=== PATIENT | female | born 1930 | race Caucasian/White ===

== ENCOUNTER 2019-09-24 03:52 | Inpatient (IN) ==
[2019-09-24] MEDS ORDERED: fentaNYL citrate 100 MCG/2 ML VIAL IV STA (04:02)
[2019-09-24] MEDS ORDERED: ONDANSETRON INJ 2 MG/ML 2 ML VIAL IV STA (04:02)
[2019-09-24] MEDS ORDERED: SODIUM CHLORIDE 0.9% 1000ML 500 ML IV ONE (04:02)
[2019-09-24] MEDS ORDERED: ONDANSETRON INJ 2 MG/ML 2 ML VIAL ONE (04:03)
--- NOTE | 2019-09-24 04:08 | Emergency Department Note ---
Impression & Plan Complicated UTI (urinary tract infection), Closed head injury, Weakness on right side of face, Acute dehydration, Generalized weakness ED Provider Note Name: MARY DEAN Age: 89 Sex: F Arrives Via: Ambulance Informant: Patient, EMS ED Provider: Bruce Martinez MD Chief Complaint: Weakness Impression: Complicated UTI Closed Head injury Weakness on right side of face Acute Dehydration Generalized Weakness Medical Decision Makin yr old female with history of GERD, TIA, HTN, Hypothyroid arrives from home for evaluation worsening headache, vomiting, weakness following multiple falls over last few days. Exam she is dehydrated, uncomfortable and has mild right facial weakness without other neuro deficits. This has been ongoing for several days thus no indication for stroke alert at this time. Patient with HTN on arrival which gradually improved with symptoms control. Given Fentanyl for Headache, Zofran for nausea followed by Ativan for nausea with good success. She has UTI by straight cath. Labs not consistent with sepsis. CXR without pna. CT head/cervical negative for acute trauma. She is stable, but not in shape to be able to go home and clearly will need further work-up for her findings. She was not given ASA as I did not feel she could pass swallow survey currently. Daughter arrived and notes patient has been taking all meds but her Pepcid. Her Levothyroxine has been difficult to manage over last year given up and down TSH. Prior Medical Record and Triage/Nursing Notes reviewed by Me Additional history obtained from EPIC Record and Daughter Differentials:Infection, dehydration, metabolic abnormality, hypo/hyperglycemia, electrolyte disturbance, anemia, hypoxia, cardiac sources, intracerebral event, toxicologic, neurologic, as well as other pathologies. Vital Signs: reviewed and remarkable for HTN Interventions: Saline lock, nss bolus, fentanyl 25mcg IV, Zofran 4mg IV, Ativan .25mg IV, Rocephin 1 gm IV Labs:Reviewed and remarkable for +UTI Imaging:[facility] Radiologist interpretation reviewed by me: CT head cervical no acute findings X ray results are stated below per my interpretation: Chest: 1 view: No infiltrate, no effusion, normal cardiac border. EKG:Per My Interpretation: Indication Weakness: Sinus Leonidas 59 bpm, qtc 459. No Ectopy. No Ischemia. No previous for comparison Cardiac/Tele Monitoring: Cardiac Monitoring: An Order was placed for continuous cardiac monitoring. The monitor shows a rate of 55 with a sinus leonidas rhythm. Consults:Dr Aguila العلي Hospitalist Plan: Disposition:Hospitalization. Condition: Fair Blood pressure:Elevated - Referred to Hospitalist Prescriptions:none PDMP: n/a History of Present Illness:89 / F arrives for evaluation of weakness. Patient notes 1 week of feeling week and difficulty ambulating. She uses a walker and notes she can't use it properly the last few days. This has lead to 2 falls over the last few days, both of which resulting in striking posterior head on the ground. Associated with frontal headache, fatigue and difficulty swallowing. Admits she hasn't been eating much due to nausea and swallowing issues. Worse with getting up, better with laying down/sitting. Denies cp, sob, syncope, abdominal pain, back pain, urinary/bowel symptoms, leg swelling, rashes, fevers, nor other symptoms. Denies family history of bleeding issues. Zofran 4mg IV prior to arrival by EMS. Patient admits history of "small stroke" when she lived in [place] many years ago. She notes she stopped taking most over medications over the last few months other than Tylenol and Vitamins ROS: See above HPI for pertinent positives & negatives. A total of 10 systems reviewed and were otherwise negative. Past Medical History:HTN, CVA, Hypothyroidism Past Surgical History:Gallbladder removal, carpal tunnel, eye surgery, bladder surgery, hysterectomy Family History: Mother CVA, Father CAD Social History:Lives with son, no etoh, no smoking, retired Home Medications:Levothyroxine, Pepcid, Tylenol, Vit D3, Vit B12, PEG Gycol Allergies:PNC, Sulfa Vitals:Blood Pressure: 207/99, Pulse 58, RR 14, T 36.4C, O2 95% on RA Physical Exam: GENERAL: Patient is elderly appearing and in moderate distress. Very dehydrated appearing EYES: No scleral icterus, unremarkable pupils. ENT: Mucous membranes dry, no nasal congestion. NECK: No masses appreciated, nomeningismus, trachea is midline. RESPIRATORY: No dyspnea. Clear to auscultation and equal bilaterally. No wheeze, no rhonchi. CARDIOVASCULAR: Regular rate and rhythm.No murmurs, rubs, gallops appreciated. GASTROINTESTINAL: Abdomen soft, non-tender, no peritonitis.Bowel sounds positive.No masses appreciated. BACK: No midline tenderness, no CVA tenderness EXTREMITIES: Normal motion all extremities, no cyanosis, no edema. NEUROLOGIC: Alert and oriented, no acute motor or sensory deficits, no focal weakness of extremities. Mild right facial droop and slightly slurred speech SKIN: No rash, no jaundice, no diaphoresis. PSYCH: Appropriate GCS: 15 ED Course: Times/Reassessments: Stable, gradually improving BP and symptoms Bruce Martinez MD Past Med/Surg History Social History Smoking Status: Never smoker Hx Alcohol Use: No Hx Substance Use: No Preferred Language: Armenian Beliefs That Will Affect Care: None Current Living Situation: Family Current Living Situation Comment: son lives with her Other Information That Helps Us Care for You: No Feels Safe at Home: Yes Allergies Allergies Allergy/AdvReac Type Severity Reaction Status Date / Time Sulfa (Sulfonamide Allergy Severe Hives Verified 09/24/19 06:19 Antibiotics) ciprofloxacin [From Cipro] Allergy Intermediate Hallucinati Verified 09/24/19 06:19 ng Penicillins Allergy Intermediate hallucinate Verified 09/24/19 04:47 s/n/v Home Meds Home Medications Medication Instructions Recorded Confirmed Lidocaine Gel 1 applic TOPICAL DIRECTED 09/24/19 09/24/19 acetaminophen [Tylenol Extra 500 mg PO Q6H PRN 09/24/19 09/24/19 Strength] cholecalciferol (vitamin D3) 50 mcg PO DAILY 09/24/19 09/24/19 cyanocobalamin (vitamin B-12) 500 mcg PO DAILY 09/24/19 09/24/19 famotidine 20 mg PO HS 09/24/19 09/24/19 levothyroxine 100 mcg PO DAILY 09/24/19 09/24/19 peg 400-propylene glycol (PF) 1 drp OPHTHALMIC (EYE) DAILY 09/24/19 09/24/19 [Systane (PF)] Results & Data (ED) Vital Signs Vital Signs - 24 hr 09/24/19 04:01 09/24/19 04:04 09/24/19 04:25 Temperature 36.4 C L Temperature Source Oral Pulse Rate 58 L 58 L 67 Pulse Rate from SpO2 Sensor 58 L 68 Respiratory Rate 14 16 18 Respiratory Depth Normal Blood Pressure 207/99 H 195/101 H 195/95 H Blood Pressure Mean 135 136 159 Pulse Oximetry 95 95 91 Oxygen Delivery Method Room Air Room Air Room Air Sepsis Recent Fever Within 48 Hours No Sepsis New/Unexplained Change in Mental Status N/A Sepsis Action Taken by Nursing No Action Required 09/24/19 04:31 09/24/19 05:01 09/24/19 05:30 Temperature Temperature Source Pulse Rate 60 64 57 L Pulse Rate from SpO2 Sensor 58 L 66 56 L Respiratory Rate 19 19 14 Respiratory Depth Blood Pressure 177/84 H 175/84 H 179/84 H Blood Pressure Mean 86 118 113 Pulse Oximetry 94 94 94 Oxygen Delivery Method Room Air Room Air Room Air Sepsis Recent Fever Within 48 Hours Sepsis New/Unexplained Change in Mental Status Sepsis Action Taken by Nursing 09/24/19 06:01 Temperature Temperature Source Pulse Rate 59 L Pulse Rate from SpO2 Sensor 58 L Respiratory Rate 16 Respiratory Depth Blood Pressure 165/85 H Blood Pressure Mean 104 Pulse Oximetry 94 Oxygen Delivery Method Room Air Sepsis Recent Fever Within 48 Hours Sepsis New/Unexplained Change in Mental Status Sepsis Action Taken by Nursing Laboratory Data Result diagrams: 09/24/19 04:43 09/24/19 04:43 Lab Results 09/24/19 09/24/19 09/24/19 Range/Units 04:05 04:43 04:43 WBC 9.72 (4.8-10.8) K/uL RBC 5.07 (4.2-5.4) M/uL Hgb 15.4 (12.0-16.0) g/dL Hct 44.9 (37-47) % MCV 88.6 (80-100) fL MCH 30.4 (25-34) pg MCHC 34.3 (32-36) g/dL RDW Std Deviation 45.3 (36.4-46.3) fL RDW Coeff of Nolvia 14.0 (11.5-14.5) % Plt Count 202 (130-400) K/uL MPV 10.3 (7.4-10.4) fL Immature Gran % (Auto) 0.2 % Neut % (Auto) 77.7 % Lymph % (Auto) 14.9 % Grady % (Auto) 6.5 % Eos % (Auto) 0.5 % Baso % (Auto) 0.2 % Neut # (Auto) 7.55 H (1.4-6.5) K/uL Lymph # (Auto) 1.45 (1.2-3.4) K/uL Grady # (Auto) 0.63 H (0.11-0.59) K/uL Eos # (Auto) 0.05 (0-0.5) K/uL Baso # (Auto) 0.02 (0-0.2) K/uL Immature Gran # (Auto) 0.02 (0.00-0.02) K/uL PT 11.1 (9.0-12.0) Seconds INR 1.1 (0.9-1.1) Sodium (136-145) mmol/L Potassium (3.5-5.1) mmol/L Chloride (98-107) mmol/L Carbon Dioxide (21-32) mmol/L Anion Gap (3-11) BUN (7-18) mg/dl Creatinine (0.6-1.2) mg/dl Est Cr Clr Drug Dosing ml/min Est GFR ( Amer) Est GFR (Non-Af Amer) BUN/Creatinine Ratio (10-20) Glucose (70-99) mg/dl Calcium (8.5-10.1) mg/dl Magnesium (1.8-2.4) mg/dl Troponin I (0-0.045) ng/ml TSH (0.300-4.500) uIu/ml Free T4 (0.8-1.6) ng/dl Urine Color Yellow Urine Appearance Cloudy A (Clear) Urine pH 8.0 H (4.5-7.5) Ur Specific [place] 1.013 (1.000-1.030) Urine Protein Negative (Negative) Urine Glucose (UA) Negative (Negative) Urine Ketones Trace H (Negative) Urine Blood Trace H (Negative) Urine Nitrite Positive A (Negative) Urine Bilirubin Negative (Negative) Urine Urobilinogen Negative (Negative) Ur Leukocyte Esterase Negative (Negative) Urine WBC (Auto) 1-5 (0-5) /hpf Urine RBC (Auto) 0-4 (0-4) /hpf U Hyaline Cast (Auto) 1-5 (0-5) /lpf U Epithel Cells (Auto) 5-10 H (0-5) /lpf Urine Bacteria (Auto) 4+ H (Negative) 09/24/19 09/24/19 Range/Units 04:43 04:43 WBC (4.8-10.8) K/uL RBC (4.2-5.4) M/uL Hgb (12.0-16.0) g/dL Hct (37-47) % MCV (80-100) fL MCH (25-34) pg MCHC (32-36) g/dL RDW Std Deviation (36.4-46.3) fL RDW Coeff of Nolvia (11.5-14.5) % Plt Count (130-400) K/uL MPV (7.4-10.4) fL Immature Gran % (Auto) % Neut % (Auto) % Lymph % (Auto) % Grady % (Auto) % Eos % (Auto) % Baso % (Auto) % Neut # (Auto) (1.4-6.5) K/uL Lymph # (Auto) (1.2-3.4) K/uL Grady # (Auto) (0.11-0.59) K/uL Eos # (Auto) (0-0.5) K/uL Baso # (Auto) (0-0.2) K/uL Immature Gran # (Auto) (0.00-0.02) K/uL PT (9.0-12.0) Seconds INR (0.9-1.1) Sodium 141 (136-145) mmol/L Potassium 3.7 (3.5-5.1) mmol/L Chloride 108 H (98-107) mmol/L Carbon Dioxide 28 (21-32) mmol/L Anion Gap 5.0 (3-11) BUN 8 (7-18) mg/dl Creatinine 0.76 (0.6-1.2) mg/dl Est Cr Clr Drug Dosing 38.8 ml/min Est GFR ( Amer) 80.6 Est GFR (Non-Af Amer) 69.5 BUN/Creatinine Ratio 11.2 (10-20) Glucose 137 H (70-99) mg/dl Calcium 9.0 (8.5-10.1) mg/dl Magnesium 2.0 (1.8-2.4) mg/dl Troponin I < 0.015 (0-0.045) ng/ml TSH 28.800 H (0.300-4.500) uIu/ml Free T4 1.03 (0.8-1.6) ng/dl Urine Color Urine Appearance (Clear) Urine pH (4.5-7.5) Ur Specific [place] (1.000-1.030) Urine Protein (Negative) Urine Glucose (UA) (Negative) Urine Ketones (Negative) Urine Blood (Negative) Urine Nitrite (Negative) Urine Bilirubin (Negative) Urine Urobilinogen (Negative) Ur Leukocyte Esterase (Negative) Urine WBC (Auto) (0-5) /hpf Urine RBC (Auto) (0-4) /hpf U Hyaline Cast (Auto) (0-5) /lpf U Epithel Cells (Auto) (0-5) /lpf Urine Bacteria (Auto) (Negative) Administered Medications Aspirin (Ecotrin Ectab) 81 mg PO QAM KIRK Stop: 10/24/19 10:59 Last Admin: 09/24/19 12:10 Dose: 81 mg Documented by: [id number] Calcium Carbonate (Tums) 1,000 mg PO Q6H PRN PRN Reason: Indigestion Stop: 10/24/19 11:33 Last Admin: 09/24/19 19:55 Dose: 1,000 mg Documented by: [id number] Cyanocobalamin (Vitamin B-12) 500 mcg PO DAILY [facility] Stop: 10/24/19 10:59 Last Admin: 09/24/19 12:10 Dose: 500 mcg Documented by: [id number] Famotidine (Pepcid) 20 mg PO HS KIRK Stop: 10/24/19 20:59 Last Admin: 09/24/19 20:33 Dose: 20 mg Documented by: [id number] Sodium Chloride (Nss 1000ml) 1,000 mls @ 75 mls/hr IV .[id number] KIRK Stop: 10/24/19 10:33 Last Infusion: 09/24/19 18:21 Dose: 75 mls/hr Documented by: [id number] Infusion: 09/24/19 17:15 Dose: 0 mls/hr Documented by: [id number] Admin: 09/24/19 11:15 Dose: 75 mls/hr Documented by: [id number] Ondansetron HCl (Zofran) 4 mg IV Q6H PRN PRN Reason: Nausea Stop: 10/24/19 10:33 Last Admin: 09/24/19 20:37 Dose: 4 mg Documented by: [id number] Discontinued Medications Fentanyl Citrate (Fentanyl Citrate) 25 mcg IV NOW STA Stop: 09/24/19 04:03 Last Admin: 09/24/19 04:29 Dose: 25 mcg Documented by: [id number] Sodium Chloride (Nss 1000ml) 500 mls @ 999 mls/hr IV .Q31M ONE Stop: 09/24/19 04:32 Last Infusion: 09/24/19 04:59 Dose: 0 mls/hr Documented by: [id number] Admin: 09/24/19 04:28 Dose: 999 mls/hr Documented by: [id number] Lorazepam (Ativan) 0.25 mg in 0.5 mls @ 0.5 mls/min IV NOW STA Stop: 09/24/19 04:56 Last Admin: 09/24/19 05:01 Dose: 0.5 mls/min Documented by: [id number] Ceftriaxone Sodium (Rocephin) 1,000 mg in 50 mls @ 100 mls/hr IV NOW STA Stop: 09/24/19 05:39 Last Infusion: 09/24/19 05:58 Dose: 0 mls/hr Documented by: [id number] Admin: 09/24/19 05:28 Dose: 100 mls/hr Documented by: [id number] Lorazepam (Ativan) 0.25 mg in 0.5 mls @ 0.5 mls/min IV ONE ONE Stop: 09/24/19 12:57 Last Admin: 09/24/19 16:11 Dose: 0.5 mls/min Documented by: [id number] Ondansetron HCl (Zofran) 4 mg IV NOW STA Stop: 09/24/19 04:03 Last Admin: 09/24/19 04:28 Dose: 4 mg Documented by: [id number] Discharge Plan Visit Data *Final* Discharge Date/Time: 09/24/19 08:51 Chief Complaint: Dizziness Stated Complaint: DIZZY/HEADACHE/FALL ED Provider: Bruce Martinez Discharge Problem: Complicated UTI (urinary tract infection), Closed head injury, Weakness on right side of face, Acute dehydration, Generalized weakness Patient Disposition: Admitted As Inpatient Discharge Instructions Interventions: ED Discharge Assessment Last Done: 09/24/19 08:51 Discharge Problem: Closed head injury Qualifiers: Encounter type: initial encounter Qualified Code(s): S09.90XA - Unspecified injury of head, initial encounter
[2019-09-24 04:35] LABS: Appearance Urine Cloudy (Clear); Bacteria Urine Automated 4+ (Negative); Bilirubin Urine Negative (Negative); Blood Urine Trace (Negative); Color Urine Yellow; Glucose Urine UA Negative (Negative); Ketones Urine Trace (Negative); Leukocyte Esterase Urine Negative (Negative); Nitrite Urine Positive (Negative); Protein Urine Negative (Negative); RBC Urine Automated 0-4 /hpf (0-4); Specific Gravity Urine 1.013 (1.000-1.030); Urobilinogen Urine Negative (Negative)
[2019-09-24] MEDS ORDERED: LORazepam 0.25 MG/0.5 ML VIAL IV STA (04:55)
[2019-09-24 04:56] LABS: Basophils # (auto) 0.02 K/uL (0-0.2); Basophils % (auto) 0.2 %; Eosinophils # (auto) 0.05 K/uL (0-0.5); Eosinophils % (auto) 0.5 %; Hematocrit (blood only) 44.9 % (37-47); Hemoglobin 15.4 g/dL (12.0-16.0); Immature Granulocytes # (auto) 0.02 K/uL (0.00-0.02); Immature Granulocytes % (auto) 0.2 %; Lymphocytes # (auto) 1.45 K/uL (1.2-3.4); Lymphocytes % (auto) 14.9 %; Mean Corpuscular Hemoglobin 30.4 pg (25-34); Mean Corpuscular Hgb Conc 34.3 g/dL (32-36); Mean Corpuscular Volume 88.6 fL (80-100); Mean Platelet Volume 10.3 fL (7.4-10.4); Monocytes # (auto) 0.63 K/uL (0.11-0.59); Monocytes % (auto) 6.5 %; Neutrophils # (auto) 7.55 K/uL (1.4-6.5); Neutrophils % (auto) 77.7 %; Platelet Count 202 K/uL (130-400); RDW Standard Deviation 45.3 fL (36.4-46.3); Red Blood Count 5.07 M/uL (4.2-5.4); White Blood Count 9.72 K/uL (4.8-10.8)
[2019-09-24] MEDS ORDERED: cefTRIAXone SODIUM 1,000 MG/50 ML BAG IV STA (05:10)
[2019-09-24 05:13] LABS: BUN Creatinine Ratio 11.2 (10-20); Blood Urea Nitrogen 8 mg/dl (7-18); Carbon Dioxide 28 mmol/L (21-32); Chloride 108 mmol/L (98-107); Creatinine Clr Calc Pharmacy 38.8 ml/min; Est GFR (African American) 80.6; Est GFR (Non-African American) 69.5; Glucose 137 mg/dl (70-99); INR 1.1 (0.9-1.1); Potassium 3.7 mmol/L (3.5-5.1); Prothrombin Time 11.1 Seconds (9.0-12.0); Sodium 141 mmol/L (136-145)
[2019-09-24 05:18] LABS: Troponin I < 0.015 ng/ml (0-0.045)
--- NOTE | 2019-09-24 06:25 | CT Scan Report ---
CT OF THE HEAD WITHOUT CONTRAST CLINICAL HISTORY: Generalized weakness/ right facial droop COMPARISON STUDY: No previous studies for comparison. CT DOSE: 1375.90 mGy.cm TECHNIQUE: Helical axial images of the head were obtained without IV contrast. Automated exposure con trol was utilized for the study. A dose lowering technique was utilized adhering to the principles o f ALARA. FINDINGS: No acute intracranial hemorrhage, midline shift or mass effect is present. Mild ventricular dilatation is due to atrophy. The basilar cisterns are patent. White matter hypodensities suggest ex tensive small vessel disease. No extra-axial collections are present. There are no findings to sugges t acute dural sinus thrombosis or acute territorial infarct. No significant calvarial abnormalities a re present. Visualized portions of the sinuses and mastoid air cells are clear. IMPRESSION: 1. No acute intracranial findings. 2. Atrophy and small vessel disease. 3. No calvarial fracture. ACT 112: Negative or not required by law. Electronically signed by: Wilner Phillips M.D. 09/24/2019 6:23 AM
--- NOTE | 2019-09-24 06:26 | XRay Report ---
XR chest 1V portable CLINICAL HISTORY: stroke COMPARISON STUDY: No previous studies for comparison. FINDINGS: Bibasilar opacities favor atelectasis. Patient is rotated. There is no consolidation to sug gest pneumonia. There is no evidence for pulmonary edema. There is mild cardiomegaly. No pneumothorax or pleural effusion is noted. Old healed proximal left humeral fracture is incidentally noted. IMPRESSION: 1. No acute findings. 2. Bibasilar opacities suggestive of atelectasis. ACT 112: Negative or not required by law. Electronically signed by: Wilner Phillips M.D. 09/24/2019 6:25 AM
--- NOTE | 2019-09-24 06:28 | CT Scan Report ---
CT OF THE CERVICAL SPINE WITHOUT CONTRAST CLINICAL HISTORY: fall, closed head injury COMPARISON STUDY: No previous studies for comparison. TECHNIQUE: Helical axial images of the cervical spine were obtained without IV contrast. Sagittal a nd coronal reconstructions were viewed. Automated exposure control was utilized for the study. A do se lowering technique was utilized adhering to the principles of ALARA. FINDINGS: Alignment of the cervical spine is anatomic. Vertebral body heights are maintained. No acut e cervical spine fracture or subluxation is present. There is no prevertebral edema. Facet joints are intact. Moderate multilevel facet arthrosis is noted. There is mild to moderate multilevel degenera tive disc disease. IMPRESSION: No acute cervical spine fracture or subluxation. ACT 112: Negative or not required by law. Electronically signed by: Wilner Phillips M.D. 09/24/2019 6:27 AM
--- NOTE | 2019-09-24 08:26 | History and Physical Report ---
DATE OF ADMISSION: 09/24/2019 CHIEF COMPLAINT: Dizziness and nausea. HISTORY OF PRESENT ILLNESS: This is an 89-year-old female with a past medical history significant for hypothyroidism, history of hypertension, currently not taking any medications, history of CVA versus TIA many years ago, but as per daughter, recent MRI scan 1 year ago did not show any stroke in it. The patient lives with her son. She walks with help of walker. About a week ago, she fell and also last Monday while she was walking with walker, she fell backwards. She thinks she hit her head and today she was having severe headache behind the eyes and also nauseous. She thought she might had concussion and came to the ER. When she came in, her blood pressure was high in 200s and her labs showed UTI. She was started on Rocephin. Her imaging studies were unremarkable. There is question of some mild right facial droop, and her daughter was not sure really sure if it was present prior or not. The patient otherwise alert and awake.Daughter helped with H&P but the patient is able to answer the questions. Currently, still has some headache. Her vision is not great and she always has a runny nose and occasional cough. She has a history of difficulty swallowing and as per daughter, she had extensive workup for swallowing and it was determined because of the GERD .Patient has some difficulty swallowing pills. Can swallow capsules okay. No shortness of breath, no chest pain, feels chills, no fever. Currently, nausea is better. No abdominal pain, but she has burning sensation in her throat when she eats food. Somewhat constipated, uses stool softeners. No blood in the stools. She has some mild burning micturition. No swelling in the legs, no rash. Currently resting comfortable and hemodynamically stable. ALLERGIES: SULFA ANTIBIOTICS, CIPROFLOXACIN, PENICILLINS. PAST MEDICAL HISTORY: As mentioned above. PAST SURGICAL HISTORY: Carpal tunnel surgery, EGDs, insertion of bilateral lens, cholecystectomy, repair of the bladder neck, total hysterectomy, breast needle biopsy. MEDICATIONS: Patient taking Synthroid 100 mcg p.o. daily, famotidine 20 mg at bedtime, vitamin D 50 mcg p.o. daily. FAMILY HISTORY: Significant for father has CAD, at age of 95. Mother had stroke, at age of 91. Brother has alcoholism. Sister has breast cancer . SOCIAL HISTORY: , lives with her son. No smoking, no alcohol, no drug use. REVIEW OF SYMPTOMS: As per HPI. Rest of review of systems negative. PHYSICAL EXAMINATION: GENERAL: The patient is old and frail, not in acute distress. VITAL SIGNS: Temperature 36.4, pulse 57, respiratory rate 14, blood pressure 117/84, oxygen 94% on room air. HEENT: No pallor, no icterus. Pupils equal, round, reactive to light. Mild right facial droop. NECK: No JVD, no neck masses. CARDIOVASCULAR: S1, S2 heard, regular rate and rhythm, no murmur, no gallop. RESPIRATORY SYSTEM: Normal AP diameter. No accessory muscle use. No wheezing, no crackles. ABDOMEN: Soft, bowel sounds present, nontender. No distention. CENTRAL NERVOUS SYSTEM: Alert and awake and oriented. Possible mild facial droop. Speech is okay. Power 3/5 extremities. Able to lift her lower extremity and hold it. Sensation is intact. No pronator drift. Position sense intact. EXTREMITIES: No edema, no erythema. LABORATORY DATA: WBC 9.7, hemoglobin 15.4, hematocrit 15.4, hematocrit 44.9, platelets 202. PT 11.1, INR 1.1. Sodium 141, potassium 3.7, chloride 108, bicarbonate 28, BUN 38, creatinine 0.7, serum glucose 137, calcium 9, magnesium 2. Troponin I less than 0.015. TSH 28.8. Urinalysis positive for nitrite and +[address] preliminary report unremarkable. CT of the head, no acute findings, small vessel disease. Chest x-ray, no acute findings, bibasilar lobes suggestive of atelectasis. ASSESSMENT AND PLAN: This is an 89-year-old female who lives at home with her son, ambulates with a walker, comes because of 2 falls in last 1 week, last fall was last Monday and today she had a headache and nausea. Came to Er for possible concussion, she was found to have UTI and possible stroke. 1. Possible CVA with questionable mild facial droop. We will do stroke workup . We will follow the MRI scan, echo, carotid Doppler, PT, OT, speech evaluation. Monitor in the tele. Neuro consult. 2. Urinary tract infection. Could be contributing to her falls. Started on Rocephin. We will follow the cultures. Gentle fluids. 3. History of frequent falls, ambulatory dysfunction and uses a walker. We will do PT, OT and monitor in the hospital. 4. Hypothyroidism. Daughter states her thyroid levels were fluctuating and she is currently taking 100 mcg p.o. daily. TSH level is high. We will follow with free T4 levels and we need to adjust dose. 5. Gastroesophageal reflux disease, on famotidine. The patient has history of difficulty swallowing. Per daughter, she has done swallow evaluation and thought from GERD. Takes treatment for her GERD. She has difficulty taking pills. She is okay to take capsules . 6. Hypertension. Blood pressure running high currently. As per daughter blood pressure is controlled at home without any medications. We will monitor the blood pressure. If it is consistently high, may need to be sent home on antihypertensives and close followup with PCP. 7. Deep venous thrombosis prophylaxis, sequential compression devices. DISPOSITION: Closely monitor in the tele. Level 1 full code. Expect to discharge home and follow with the family doctor. TATE
[2019-09-24] MEDS ORDERED: PHARMACIST DISCHARGE MED REC CONSULT PRN (10:34)
[2019-09-24] MEDS ORDERED: POLYETHYLENE (MIRALAX) 17 GM PACK PO PRN (10:34)
[2019-09-24] MEDS ORDERED: ACETAMINOPHEN 325 MG TAB PO PRN (10:34)
[2019-09-24] MEDS ORDERED: NITROGLYCERIN SL 0.4 MG/TAB TAB SL PRN (10:34)
[2019-09-24] MEDS ORDERED: HydrALAZINE HCL 20 MG/ML VIAL IV PRN (10:34)
[2019-09-24] MEDS: SODIUM CHLORIDE 0.9% 1000ML 1,000 ML IV SCH ×2 (11:15→23:54)
[2019-09-24 11:22] LABS: Thyroid Stimulating Hormone 28.8 uIu/ml (0.300-4.500)
[2019-09-24 11:37] LABS: T4 Free Thyroxine 1.03 ng/dl (0.8-1.6)
[2019-09-24] MEDS: CYANOCOBALAMIN 500 MCG TABLET (VITAMIN B-12) PO SCH (12:10)
[2019-09-24] MEDS: ASPIRIN 81 MG ECTAB PO SCH (12:10)
[2019-09-24] MEDS ORDERED: LORazepam 0.25 MG/0.5 ML VIAL IV ONE (12:56)
--- NOTE | 2019-09-24 16:20 | Communication Note ---
Date of Service: September 24, 2019 I have seen interviewed and examined Mrs. Small today but unfortunately had no family members to interview and the patient was quite hearing impaired. The history was reviewed and the question now is whether or not she has a new right facial asymmetry and possibly a new stroke or significant trauma related to her recent fall or falls. 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 Her CT scan shows extensive white matter changes but nothing convincing that is new and she will need an MRI scan and echocardiogram etc. all as outlined before we can make a definitive diagnosis here of a new versus old CVA According to the chart she is not on any antiplatelet drugs but does have some GERD. 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
--- NOTE | 2019-09-24 17:49 | Magnetic Resonance Report ---
MR brain wo con HISTORY: 89 years-old Female cva? Acute strokelike symptoms COMPARISON: Head CT 09/24/2019 TECHNIQUE: Multiplanar multisequence MRI of the brain was obtained without the use of IV contrast. FINDINGS: Study is mildly motion degraded. Regulatory Product Manager localizer images demonstrate no gross extracranial abnormality . There is no restricted diffusion to suggest acute or subacute infarct. Age-related involutional blanquita nges with ex vacuo ventriculomegaly. No acute intracranial hemorrhage, midline shift, abnormal extra axial collection, hydrocephalus or intracranial mass. Extensive confluent T2/FLAIR hyperintensities a re noted throughout the white matter. The major vascular flow voids appear patent. Prior bilateral le ns replacement. Mastoid air cells and paranasal sinuses are generally clear. The skull and soft tissu es are unremarkable. IMPRESSION: 1. No acute intracranial abnormality, specifically there is no evidence of acute or subacute infarct. 2. Age-related involutional changes with ex vacuo ventriculomegaly. 3. Extensive confluent T2/FLAIR hyperintensities throughout the white matter are suggestive of probab le chronic microvascular ischemic disease. ACT 112: Negative or not required by law. The above report was generated using voice recognition software. It may contain grammatical, syntax o r spelling errors. Electronically signed by: Mark Mariano M.D. 09/24/2019 5:47 PM
--- NOTE | 2019-09-24 18:01 | Ultrasound Report ---
US carotid doppler BI CLINICAL HISTORY: 89 years-old Female with cva?. Acute strokelike symptoms COMPARISON: Brain MRI of same day TECHNIQUE: Multiple real time sonographic images of the carotid bifurcations were obtained assessing chou scale, color Doppler and spectral wave form appearance FINDINGS: RIGHT CAROTID: The peak systolic velocity within the right ICA is measured at62 cm/sec. The end ad stolic velocity measured 22 cm/sec. The ICA to CCA ratio measured 0.98 which correlates with a steno sis of 0-50%. There is moderate mixed plaque of the right carotid bulb and proximal right ICA. LEFT CAROTID: The peak systolic velocity within the left ICA is measured at46 cm/sec. The end diast olic velocity measured 14 cm/sec. The ICA to CCA ratio measured 0.58 which correlates with a stenosis of 0-50%. There is moderate mixed plaque within the left carotid bulb and proximal left ICA. There is normal antegrade vertebral flow bilaterally. IMPRESSION: 1. No hemodynamically significant stenosis. 2. Normal antegrade vertebral flow bilaterally. ACT 112: Negative or not required by law. The above report was generated using voice recognition software. It may contain grammatical, syntax o r spelling errors. Electronically signed by: Mark Mariano M.D. 09/24/2019 6:00 PM
--- NOTE | 2019-09-24 18:27 | Communication Note ---
Date of Service: September 24, 2019 The patient was seen and examined today in medical telemetry unit in presence of the daughter She complains to have extreme weakness and tiredness but denies any focal neuro deficit She was noted to be very dizzy when she was up and about with assistance Denies any acute symptoms On examination Hemodynamically stable Chest-decreased breath sounds at the bases with minimal crackles Heart-S1-S2 regular Abdomen-benign Extremities-no edema MANAGER PHP-generally weak, no focal neuro deficit Admission labs and imaging studies reviewed Has UTI Doubt any stroke Postural hypotension-check orthostasis advised more fluid intake Awaiting MRI, carotid Doppler and echo report Neurology consulted Dr Toni Amador
[2019-09-24] MEDS: ONDANSETRON INJ 2 MG/ML 2 ML VIAL IV PRN ×2 (18:29→20:37)
[2019-09-24] MEDS ORDERED: LIDOCAINE 2% JELLY 5 ML TUBE EXT PRN (18:30)
--- NOTE | 2019-09-24 18:51 | Consultation Report ---
DATE OF CONSULTATION: 09/24/2019 NEUROLOGIC CONSULTATION CONSULT FOR: Kai Amador MD. HISTORY OF PRESENT ILLNESS: Ivette is 89 years old who is a patient of Dr. Grace Perez of [facility] and presented today with a history of having several falls, a closed head injury, a headache and some nausea. On evaluation, there is some question of a right facial asymmetry that the patient was unaware of and family members were not sure had been present previously and neurology has now been asked to see her regarding a possible stroke as a cause for the falls or as a residual of the head injury. Imaging studies have shown leukoencephalopathic changes on the CAT scan, but right now a lot of studies are still not completed, but have been ordered including an MRI of the brain and I believe, analysis of the extracranial vasculature and echocardiogram, etc. Past medical history reveals hypertension, not currently receiving any medications; remote history of a CVA versus TIA, symptoms unrecalled. 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 Unfortunately, the patient also has profound sensorineural hearing loss and I am trying to interview her through a face mask and face shield, which does not help and many other historical aspects had to be obtained from the chart rather than the patient directly and no family members were present. According to what I can glean from the chart, she fell backwards last Monday while walking, may have struck her head and then she apparently had another fall today and was talking about some headaches and some nausea. She was concerned she may have had a concussion, came to the Emergency Room, her blood pressure was in the high 200s and labs were consistent with a urinary tract infection or at least suggested it. She was started on Rocephin. Imaging studies showed leukoencephalopathy. The right facial droop was present clinically again without any clear precedent for this having been seen before and she was admitted to the hospital. MEDICATIONS AT HOME: Include Synthroid for hypothyroidism, famotidine, vitamin D and does not include aspirin. PAST SURGICAL HISTORY: She has had carpal tunnel surgery, EGDs. She has had bilateral lens implants, cholecystectomy, repair of bladder neck, total hysterectomy and breast needle biopsy. ALLERGIES: SHE HAS ALLERGIES TO SULFA, CIPRO, AND PENICILLINS. FAMILY HISTORY: Reveals her father having coronary disease, at age 95. Mother had a stroke, at age 91. Brother has alcoholism. Sister has breast cancer. SOCIAL HISTORY: Reveals her to be , living with her son. She is a nonsmoker, nonconsumer of ethanol. REVIEW OF SYSTEMS: Reveals hearing loss and the recent falls. No particular fevers, sweats, chills, weight loss or weight gain, no issues referable to head, eyes, ears, nose and throat other than the hearing loss and no new cardiovascular, pulmonary, gastrointestinal, genitourinary, musculoskeletal, dermatologic or hematologic issues that I can elicit nor were elicited by the examining physician and neurologically, there is a vague history of CVA and TIA, symptoms unrecalled and chronic gait disturbance perhaps with some subjective leg numbness, but characterized by the patient of basically chronic imbalance and insecurity while walking. PHYSICAL EXAMINATION: VITAL SIGNS: Today revealed a blood pressure of 117/84 after the initial elevated pressure, oxygen saturation of 94%, temperature 36.4, pulse was 57, respirations were 14. GENERAL: She was somewhat frail, hard of hearing. HEENT: Had no cranial deformities or clear signs of trauma. Eye movements were described as normal. Pupils are equal, round and reactive to light. Mild right facial droop was noted. Ocular fundi were poorly seen. NECK: Supple. No carotid bruits were heard. LUNGS: Clear. HEART: Had a regular rhythm. No murmurs were appreciated. ABDOMEN: Soft and nontender. EXTREMITIES: Free of significant edema and good peripheral pulses were present. NEUROLOGIC: Today, again she is awake, alert, oriented, but quite hearing impaired and conversation was very difficult. I could elicit no significant neurologic complaints today and she stated her headache was actually better. She did not describe any double vision, oscillopsia, was unaware of any facial asymmetry. Denied any facial numbness or weakness and had, with the exception of the facial asymmetry, no other facial weakness. Facial sensation was normal. Speech was clear. Tongue protruded in the midline. Gross visual field testing was normal. There was no drift or pronation sign, tremor, tics or choreiform activity. Lower extremity movements were reasonably well done, although she had trouble comprehending exactly how I wanted her to perform them. Reflexes were difficult to elicit because of poor relaxation, I do not think she had ankle jerks, but toes were downgoing. No Avtar signs were seen, and strength testing was normal without atrophy or fasciculations. Sensory examination of the lower extremities revealed reduced vibratory sense and reduced proprioception, but the magnitude of this was difficult to determine because of her extreme hearing loss and difficulty comprehending some of the sensory test that I was asking her to perform. Pinprick and temperature were difficult to test. LABORATORY STUDIES: Revealed a normal white count, hemoglobin, hematocrit, sodium, potassium, chloride, BUN was slightly elevated, creatinine was normal. Glucose was normal. Calcium was normal. Magnesium was normal. Troponin was fine. TSH was elevated at 28.8. Urinalysis was positive for nitrites and 4+ bacteria. Cervical CT scan is showing no fracture, and head CT scan shows leukoencephalopathy. MRI, etc. is pending according to what I can glean from the order set. ASSESSMENT AND PLAN: At this point, we have a woman with hypothyroidism and an elevated TSH, possible urinary tract infection, 2 recent falls in the setting of a chronic gait disturbance and a right facial asymmetry of indeterminate age, probably old, but an acute new cerebrovascular accident involving the left hemisphere cannot be excluded. I would recommend a workup as outlined to include an MRI and frankly I would put her on some aspirin, although I suspect she has gastroesophageal reflux disease and aspirin may exacerbate this. Plavix might be a reasonable choice. I will let this up to her attending physicians at this point, perhaps she is on an antiplatelet drug at home and it was just not recorded. Again, her hearing loss makes it very difficult to establish this and no family members were present in the room. I will check back tomorrow and review the outstanding stroke diagnostic studies.
--- NOTE | 2019-09-24 18:53 | Progress Notes ---
DATE: 09/24/2019 I have seen, interviewed and examined Mrs. Small today, but unfortunately had no family members to interview and the patient was quite hearing impaired. The history was reviewed and the question now is whether or not she has a new right facial asymmetry and possibly a stroke or significant trauma related to her recent falls. 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 Her CT scan shows extensive white matter changes, but nothing convincing that is new and she will need an MRI scan and echocardiogram, etc., all as outlined before we can make a definitive diagnosis here of a new versus old CVA. According to the chart, she is not on any antiplatelet drugs, but does have some GERD. I think she should be at least on a single agent, either aspirin or Plavix unless there are contraindications and obviously if we do find evidence for a stroke, then dual antiplatelet therapy would be recommended based on the standard protocol for 21 days. I will get back to the chart tomorrow, hopefully, with little more information in terms of diagnostic studies and we will try to again get a history from the patient about the right facial weakness, but currently she thinks there is nothing new going on and my suspicions are this is old, related to one of her leukoencephalopathic small vessel infarctions and could be a little more evident because of her urinary tract infection and perhaps because of the hypothyroidism, but again one can never exclude an acute vascular event. A full consultation has been dictated and will be corrected later and this communication will serve as an interim holding note. TATE
[2019-09-24] MEDS: CALCIUM CARBONATE 500 MG CHEWABLE TAB PO PRN (19:55)
[2019-09-24] MEDS: FAMOTIDINE 20 MG TAB PO SCH (20:33)
[2019-09-25] MEDS: cefTRIAXone SODIUM 1,000 MG in DEXTROSE 5% 50 ML IV SCH (05:41)
[2019-09-25 06:01] LABS: Basophils # (auto) 0.05 K/uL (0-0.2); Basophils % (auto) 0.7 %; Eosinophils # (auto) 0.14 K/uL (0-0.5); Eosinophils % (auto) 1.9 %; Hematocrit (blood only) 41.2 % (37-47); Hemoglobin 13.5 g/dL (12.0-16.0); Immature Granulocytes # (auto) 0.01 K/uL (0.00-0.02); Immature Granulocytes % (auto) 0.1 %; Lymphocytes # (auto) 1.75 K/uL (1.2-3.4); Lymphocytes % (auto) 23.7 %; Mean Corpuscular Hemoglobin 29.6 pg (25-34); Mean Corpuscular Hgb Conc 32.8 g/dL (32-36); Mean Corpuscular Volume 90.4 fL (80-100); Mean Platelet Volume 10.3 fL (7.4-10.4); Monocytes # (auto) 0.58 K/uL (0.11-0.59); Monocytes % (auto) 7.9 %; Neutrophils # (auto) 4.85 K/uL (1.4-6.5); Neutrophils % (auto) 65.7 %; Platelet Count 200 K/uL (130-400); RDW Coefficient of Variation 14.4 % (11.5-14.5); RDW Standard Deviation 48.1 fL (36.4-46.3); Red Blood Count 4.56 M/uL (4.2-5.4); White Blood Count 7.38 K/uL (4.8-10.8)
[2019-09-25] MEDS: LEVOTHYROXINE SODIUM 112 MCG TABLET PO SCH (06:03)
[2019-09-25 06:29] LABS: BUN Creatinine Ratio 11.8 (10-20); Calcium 8.7 mg/dl (8.5-10.1); Creatinine Clr Calc Pharmacy 36.4 ml/min; Est GFR (African American) 74.6; Est GFR (Non-African American) 64.4; Potassium 3.7 mmol/L (3.5-5.1)
[2019-09-25] MEDS ORDERED: LEVOTHYROXINE SODIUM 125 MCG TABLET PO SCH (06:30)
[2019-09-25 08:12] LABS: Estimated Average Glucose 117 mg/dl; Hemoglobin A1C 5.7 % (4.5-5.6)
[2019-09-25] MEDS: ASPIRIN 81 MG ECTAB PO SCH (08:35)
[2019-09-25] MEDS: CHOLECALCIFEROL 1,000 UNITS 25 MCG TAB PO SCH (08:35)
[2019-09-25] MEDS: CYANOCOBALAMIN 500 MCG TABLET (VITAMIN B-12) PO SCH (08:35)
[2019-09-25] MEDS: ARTIFICIAL TEARS OP SCH (08:38)
--- NOTE | 2019-09-25 13:43 | CT Scan Report ---
CT OF THE ABDOMEN AND PELVIS WITHOUT CONTRAST CLINICAL HISTORY: Abdominal pain. COMPARISON STUDY: No previous studies for comparison. TECHNIQUE: Axial images of the abdomen and pelvis were obtained without IV contrast. Images were revi ewed in the axial, sagittal, and coronal planes. Automated exposure control was utilized for the marielena dy. A dose lowering technique was utilized adhering to the principles of ALARA. FINDINGS: Ground glass opacity within the lower lungs favor atelectasis. There is a small hiatal macrina ia. There are trace bilateral pleural effusions. Mild cardiomegaly is noted. Evaluation of the abdome n and pelvis is suboptimal on this unenhanced examination. The gallbladder is not visualized. There i s mild biliary ductal dilatation. There is no peripancreatic infiltration. Unenhanced images of the l iver, spleen, adrenal glands and kidneys are normal. There is no hydronephrosis. There are no urinary calculi. Colonic diverticulosis is noted without evidence for acute diverticulitis. The appendix is not visualized. There is trace fluid within the right paracolic gutter. No lymphadenopathy is present . There are no suspicious osseous lesions. No acute fractures are identified within visualized skelet al structures. Small fat-containing umbilical hernia is present. There are small fat-containing bilat eral inguinal hernias. IMPRESSION: 1. No acute process within the abdomen or pelvis on unenhanced exam. 2. Colonic diverticulosis without evidence for acute diverticulitis. 3. Moderate amount stool within the colon. 4. Trace fluid within the right paracolic gutter. 5. Mild biliary ductal dilatation. Probable cholecystectomy which likely accounts for the biliary whitney sherlyn dilatation although the findings could be correlated with liver function tests. ACT 112: Negative or not required by law. Electronically signed by: Wilner Phillips M.D. 09/25/2019 1:41 PM
[2019-09-25] MEDS: POLYETHYLENE (MIRALAX) 17 GM PACK PO SCH (14:44)
[2019-09-25] MEDS: SODIUM CHLORIDE 0.9% 1000ML 1,000 ML IV SCH (14:44)
[2019-09-25 15:31] LABS: Albumin Level 2.8 gm/dl (3.4-5.0); Bilirubin,Total 0.5 mg/dl (0.2-1); Total Protein 6.2 gm/dl (6.4-8.2)
[2019-09-25 16:17] LABS: Bilirubin Direct 0.1 mg/dl (0-0.2)
--- NOTE | 2019-09-25 17:58 | Hospitalist Progress Note ---
Date of Service September 25, 2019 Assessment & Plan (1) Complicated UTI (urinary tract infection): Patient is an 89 yr female who ambulates with walker at baseline presents secondary to recurrent falls. UTI: Urine Cx: E.Coli Continue Rocephin Received IV fluids Recurrent Falls Possible Concussion R/O CVA Positive Orthostatics --MRI Brain:No acute intracranial abnormality, specifically there is no evidence of acute or subacute infarct. Age-related involutional changes with ex vacuo ventriculomegaly. Extensive confluent T2/FLAIR hyperintensities throughout the white matter are suggestive of probable chronic microvascular ischemic disease. --Carotid Doppler:No hemodynamically significant stenosis. Normal antegrade vertebral flow bilaterally. --PT/OT --Continue aspirin --Appreciate Neurology Input Not on any BP meds Continue gentle IV fluids Liberalize salt in diet Teds Fall precautions Sinus Bradycardia Dizziness Avoid AV romeo blocking agents --ECHO: The interatrial septum is intact with no evidence of ASD. Left atrium is moderately dilated. Right atrial size is normal. Left ventricle is normal in size. Ejection fraction 60 to 65%. Right ventricular systolic function is normal. Mild aortic regurgitation. Grade 1 diastolic dysfunction. Cardiology consulted for Input Monitor on Tele Hypothyroidism Thyroid levels fluctuate as per patient's daughter TSH:28 Free T4:1.03 Levothyroxine increased to 112mcg Needs repeat thyroid function test as outpatient Gastroesophageal reflux disease On famotidine DVT Px: SCDs Code Status Full Code DISPOSITION: PT/OT prior to discharge Admission and Anticipated Discharge Date Admission Date: September 24, 2019 Subjective Patient is seen and examined at bedside Complains of dizziness especially with change in position Sinus bradycardia on monitor, no pauses States having intermittent abdominal pain after food intake Discussed with patient's daughter at bedside Denies any chest pain, shortness of breath, nausea, vomiting Offers no other complaints Review of Systems Review of Systems: All systems reviewed & are unremarkable except as noted in HPI & below Physical Exam Physical Exam: Physical Exam: Vitals signs as noted above General Appearance:Moderately built and nourished, no apparent distress Head: normocephalic, Atraumatic Eyes: normal inspection, EOMI Neck: supple, Trachea midline Respiratory/Chest: Normal breath sounds, CTA, No accessory muscle use Cardiovascular: S1, S2, No murmur Abdomen/GI:Soft, Non tender, Bowel sounds present Extremities/Musculoskelatal:normal inspection, Trace edema Neurologic/Psych:AAOX3, grossly no focal neurological deficits Skin: normal color, warm Results & Data Results & [facility] ([facility]) Vital Signs (Past 12 Hours) Vital Signs Temp Pulse Pulse Resp BP BP Pulse Ox 09/25/19 16:00 36.9 C 50 L 44 L 18 101/56 L 93 09/25/19 11:46 36.9 C 56 L 20 114/68 93 09/25/19 08:19 37.0 C 54 L 20 129/74 94 09/25/19 08:00 48 L Laboratory Results Short CBC 09/25/19 Range/Units 05:32 WBC 7.38 (4.8-10.8) K/uL Hgb 13.5 (12.0-16.0) g/dL Hct 41.2 (37-47) % Plt Count 200 (130-400) K/uL BMP 09/25/19 05:32 Sodium 140 Potassium 3.7 Chloride 108 H Carbon Dioxide 27 BUN 10 Creatinine 0.81 Glucose 90 Calcium 8.7 Liver Function 09/25/19 09/25/19 Range/Units 14:38 15:50 Total Bilirubin 0.5 (0.2-1) mg/dl Direct Bilirubin 0.1 (0-0.2) mg/dl AST 17 (15-37) U/L ALT 12 (12-78) U/L Alkaline Phosphatase 50 (45-117) U/L Albumin 2.8 L (3.4-5.0) gm/dl
--- NOTE | 2019-09-25 18:02 | Communication Note ---
Date of Service: September 25, 2019 I saw Ivette today in the accompaniment of her daughter who provide a little more history about her gait disturbance and tendency to fall backwards which is been present for several years. The family has been told that there is no evidence for strokes yet CT scans have continued to show fairly prominent leukoencephalopathy which we feel are due to silent vascular insult and I think the magnitude of these findings easily explains her gait with a lot of apraxia and subjective unsteadiness. That having been said the current MRI shows no evidence for acute vascular lesion that would explain the right facial asymmetry which I suspect is of longstanding at this point we do not have evidence for a new stroke she seems a little better today although is still severely hearing impaired and apparently is being considered for transfer to rehabilitation She does have hypothyroidism and probable urinary tract infection Neurology really does not need to follow-up on this case unless the family would desire neurologic evaluation at some point in the future and we would be happy to provide this on an outpatient basis but at this point were going to sign off the case Gordon Swain
[2019-09-25] MEDS: FAMOTIDINE 20 MG TAB PO SCH (20:12)
[2019-09-26] MEDS: ACETAMINOPHEN 500 MG TAB PO PRN (00:20)
[2019-09-26] MEDS ORDERED: TRAMADOL HCL 50 MG TABLET PO PRN (01:17)
[2019-09-26 03:21] LABS: Base Excess ABG -0.4 mEq/L (-9-1.8); HCO3 ABG 24 mmol/L (19-24); Oxygen Saturation ABG 97.5 % (90-95); PCO2 ABG 36 mmHg (35-46); PO2 ABG 94 mmHg (80-95); pH ABG 7.43 (7.35-7.45)
[2019-09-26 03:23] LABS: Allen Test POS (Pos)
[2019-09-26 03:26] LABS: Basophils # (auto) 0.03 K/uL (0-0.2); Basophils % (auto) 0.4 %; Eosinophils % (auto) 1.4 %; Hematocrit (blood only) 37.1 % (37-47); Hemoglobin 12.9 g/dL (12.0-16.0); Immature Granulocytes # (auto) 0.03 K/uL (0.00-0.02); Immature Granulocytes % (auto) 0.4 %; Lymphocytes # (auto) 1.74 K/uL (1.2-3.4); Lymphocytes % (auto) 24.3 %; Mean Corpuscular Hemoglobin 30.7 pg (25-34); Mean Corpuscular Hgb Conc 34.8 g/dL (32-36); Mean Corpuscular Volume 88.3 fL (80-100); Mean Platelet Volume 10.4 fL (7.4-10.4); Monocytes # (auto) 0.64 K/uL (0.11-0.59); Neutrophils # (auto) 4.61 K/uL (1.4-6.5); Neutrophils % (auto) 64.5 %; Platelet Count 162 K/uL (130-400); RDW Coefficient of Variation 14.1 % (11.5-14.5); RDW Standard Deviation 45.6 fL (36.4-46.3); White Blood Count 7.15 K/uL (4.8-10.8)
[2019-09-26 03:30] LABS: BUN Creatinine Ratio 11.7 (10-20); Calcium 8.1 mg/dl (8.5-10.1); Creatinine Clr Calc Pharmacy 43.1 ml/min; Est GFR (African American) 89.5; Est GFR (Non-African American) 77.2; Magnesium 1.9 mg/dl (1.8-2.4); Potassium 3.8 mmol/L (3.5-5.1)
[2019-09-26 03:33] LABS: Partial Thromboplastin Time 28.5 Seconds (21.0-31.0)
[2019-09-26 04:13] LABS: Albumin Level 3.1 gm/dl (3.4-5.0)
[2019-09-26] MEDS: cefTRIAXone SODIUM 1,000 MG in DEXTROSE 5% 50 ML IV SCH (05:07)
[2019-09-26] MEDS: LEVOTHYROXINE SODIUM 112 MCG TABLET PO SCH (05:20)
--- NOTE | 2019-09-26 06:33 | XRay Report ---
XR chest 1V portable HISTORY: 89 years-old Female low o2 acute hypoxia COMPARISON: Chest radiograph 09/24/2019 TECHNIQUE: Portable AP view of the chest FINDINGS: Cardiac silhouette is upper limits of normal in size. Mild right hemidiaphragmatic elevation. No pneu mothorax, pleural effusion, overt pulmonary edema or airspace consolidation typical for pneumonia. Mi nimal linear bibasilar atelectasis/scarring. Degenerative changes of the shoulders and spine. IMPRESSION: No acute process. ACT 112: Negative or not required by law. The above report was generated using voice recognition software. It may contain grammatical, syntax o r spelling errors. Electronically signed by: Mark Mariano M.D. 09/26/2019 6:32 AM
--- NOTE | 2019-09-26 08:19 | Electrocardiogram Report ---
Test Reason : Blood Pressure : / mmHG Vent. Rate : 059 BPM Atrial Rate : 059 BPM P-R Int : 188 ms QRS Dur : 090 ms QT Int : 464 ms P-R-T Axes : 079 018 -44 degrees QTc Int : 459 ms Sinus bradycardia Nonspecific T wave abnormality Abnormal ECG No previous ECGs available Confirmed by Wild Pérez ([id number]) on 09/26/2019 8:19:18 AM Referred By: REFERRED SELF Confirmed By:Wild Pérez
[2019-09-26] MEDS: POLYETHYLENE (MIRALAX) 17 GM PACK PO SCH (08:25)
[2019-09-26] MEDS: CYANOCOBALAMIN 500 MCG TABLET (VITAMIN B-12) PO SCH (08:26)
[2019-09-26] MEDS: ASPIRIN 81 MG ECTAB PO SCH (08:26)
[2019-09-26] MEDS: CHOLECALCIFEROL 1,000 UNITS 25 MCG TAB PO SCH (08:26)
[2019-09-26] MEDS: ARTIFICIAL TEARS OP SCH (08:27)
--- NOTE | 2019-09-26 18:17 | Hospitalist Progress Note ---
Date of Service September 26, 2019 Assessment & Plan (1) Complicated UTI (urinary tract infection): Patient is an 89 yr female who ambulates with walker at baseline presents secondary to recurrent falls. UTI: Urine Cx: E.Coli--Pansensitive Continue Rocephin Received IV fluids Recurrent Falls Possible Concussion R/O CVA Positive Orthostatics --MRI Brain:No acute intracranial abnormality, specifically there is no evidence of acute or subacute infarct. Age-related involutional changes with ex vacuo ventriculomegaly. Extensive confluent T2/FLAIR hyperintensities throughout the white matter are suggestive of probable chronic microvascular ischemic disease. --Carotid Doppler:No hemodynamically significant stenosis. Normal antegrade vertebral flow bilaterally. --PT/OT --Continue aspirin --Appreciate Neurology Input Dizziness Hypotension MRI brain/Carotid doppler as above Not on any BP meds Received IV fluids Liberalize salt in diet Teds Fall precautions Sinus Bradycardia Likely due to hypothyroidism Avoid AV romeo blocking agents --ECHO: The interatrial septum is intact with no evidence of ASD. Left atrium is moderately dilated. Right atrial size is normal. Left ventricle is normal in size. Ejection fraction 60 to 65%. Right ventricular systolic function is normal. Mild aortic regurgitation. Grade 1 diastolic dysfunction. Will consider Cardiology Input if no improvement Monitor on Tele Hypothyroidism Thyroid levels fluctuate as per patient's daughter TSH:28 Free T4:1.03 Levothyroxine increased to 125mcg Will repeat thyroid function test in AM Will discuss with Endoscrinology Gastroesophageal reflux disease On famotidine DVT Px: SCDs Code Status Full Code DISPOSITION: PT/OT prior to discharge Admission and Anticipated Discharge Date Admission Date: September 24, 2019 Subjective Patient is seen and examined at bedside Continues to complain of dizziness Patient's daughter thought that she is intermittently confused On my exam today, patient is oriented x3 Remains bradycardic but no pauses Bradycardia likely secondary to hypothyroidism Denies any chest pain, shortness of breath, nausea, vomiting Review of Systems Review of Systems: All systems reviewed & are unremarkable except as noted in HPI & below Physical Exam Physical Exam: Physical Exam: Vitals signs as noted above General Appearance:Moderately built and nourished, no apparent distress Head: normocephalic, Atraumatic Eyes: normal inspection, EOMI Neck: supple, Trachea midline Respiratory/Chest: Normal breath sounds, CTA, No accessory muscle use Cardiovascular: S1, S2, No murmur, +Bradycardia Abdomen/GI:Soft, Non tender, Bowel sounds present Extremities/Musculoskelatal:normal inspection, Trace edema Neurologic/Psych:AAOX3, grossly no focal neurological deficits Skin: normal color, warm Results & Data Results & Data ([facility]) Vital Signs (Past 12 Hours) Vital Signs Temp Pulse Pulse Resp BP BP Pulse Ox 09/26/19 16:52 37.0 C 44 L 18 124/77 91 09/26/19 11:40 36.3 C L 42 L 16 129/65 98 09/26/19 08:00 44 L 09/26/19 07:51 36.7 C 54 L 16 90/52 L 97 Laboratory Results Short CBC 09/26/19 Range/Units 01:57 WBC 7.15 (4.8-10.8) K/uL Hgb 12.9 (12.0-16.0) g/dL Hct 37.1 (37-47) % Plt Count 162 (130-400) K/uL BMP 09/26/19 01:57 Sodium 141 Potassium 3.8 Chloride 111 H Carbon Dioxide 24 BUN 8 Creatinine 0.69 Glucose 102 H Calcium 8.1 L Liver Function 09/26/19 Range/Units 01:57 Albumin 3.1 L (3.4-5.0) gm/dl
[2019-09-26] MEDS: FAMOTIDINE 20 MG TAB PO SCH (20:08)
[2019-09-27] MEDS: cefTRIAXone SODIUM 1,000 MG in DEXTROSE 5% 50 ML IV SCH (05:37)
[2019-09-27 06:14] LABS: Hematocrit (blood only) 43.5 % (37-47); Hemoglobin 14.4 g/dL (12.0-16.0); Mean Corpuscular Hemoglobin 29.9 pg (25-34); Mean Corpuscular Hgb Conc 33.1 g/dL (32-36); Mean Corpuscular Volume 90.4 fL (80-100); Mean Platelet Volume 11.2 fL (7.4-10.4); Platelet Count 208 K/uL (130-400); RDW Standard Deviation 46.2 fL (36.4-46.3); Red Blood Count 4.81 M/uL (4.2-5.4); White Blood Count 7.48 K/uL (4.8-10.8)
[2019-09-27] MEDS ORDERED: LEVOTHYROXINE SODIUM 125 MCG TABLET PO SCH (06:30)
[2019-09-27 06:38] LABS: BUN Creatinine Ratio 9.4 (10-20); Calcium 8.5 mg/dl (8.5-10.1); Creatinine Clr Calc Pharmacy 37.1 ml/min; Est GFR (African American) 74.6; Est GFR (Non-African American) 64.4; Potassium 3.4 mmol/L (3.5-5.1)
[2019-09-27 06:49] LABS: T4 Free Thyroxine 1.03 ng/dl (0.8-1.6); Thyroid Stimulating Hormone 30.2 uIu/ml (0.300-4.500)
[2019-09-27] MEDS: POLYETHYLENE (MIRALAX) 17 GM PACK PO SCH (08:27)
[2019-09-27] MEDS: ARTIFICIAL TEARS OP SCH (08:27)
[2019-09-27] MEDS: ASPIRIN 81 MG ECTAB PO SCH (08:27)
[2019-09-27] MEDS: CHOLECALCIFEROL 1,000 UNITS 25 MCG TAB PO SCH (08:27)
[2019-09-27] MEDS: CYANOCOBALAMIN 500 MCG TABLET (VITAMIN B-12) PO SCH (08:27)
[2019-09-27] MEDS ORDERED: POTASSIUM CHLORIDE 20 MEQ TABCR PO ONE (08:40)
[2019-09-27] MEDS: CALCIUM CARBONATE 500 MG CHEWABLE TAB PO PRN (10:05)
--- NOTE | 2019-09-27 18:21 | Hospitalist Progress Note ---
Date of Service September 27, 2019 Assessment & Plan (1) Complicated UTI (urinary tract infection): Patient is an 89 yr female who ambulates with walker at baseline presents secondary to recurrent falls. UTI: Urine Cx: E.Coli--Pansensitive Continue Rocephin Day #3 Received IV fluids Recurrent Falls Possible Concussion secondary to fall R/O CVA Positive Orthostatics --MRI Brain:No acute intracranial abnormality, specifically there is no evidence of acute or subacute infarct. Age-related involutional changes with ex vacuo ventriculomegaly. Extensive confluent T2/FLAIR hyperintensities throughout the white matter are suggestive of probable chronic microvascular ischemic disease. --Carotid Doppler:No hemodynamically significant stenosis. Normal antegrade vertebral flow bilaterally. --PT/OT --Continue aspirin --Appreciate Neurology Input Dizziness Hypotension MRI brain/Carotid doppler as above Not on any BP meds Received IV fluids Liberalize salt in diet Teds Fall precautions Sinus Bradycardia Likely due to hypothyroidism Avoid AV romeo blocking agents --ECHO: The interatrial septum is intact with no evidence of ASD. Left atrium is moderately dilated. Right atrial size is normal. Left ventricle is normal in size. Ejection fraction 60 to 65%. Right ventricular systolic function is normal. Mild aortic regurgitation. Grade 1 diastolic dysfunction. Monitor on Tele Discussed with Endocrinology Dr.Jodie Major ([facility]) Plan to give trial of IV levothyroxine Transition to PO levothyroxine 125 mcg as able Needs repeat thyroid function test as outpatient Will consider Cardiology eval if no improvement No pauses on Monitor Hypothyroidism Thyroid levels fluctuate as per patient's daughter Currently Subclinical hypothyroidism TSH:30 Free T4:1.03 Plan to increase Levothyroxine to 125mcg as able Needs follow up with Endocrinology upon discharge Hypokalemia Replete electrolytes as needed check magnesium levels Gastroesophageal reflux disease On famotidine DVT Px: SCDs Heparin SQ Code Status Full Code DISPOSITION: Needs Rehab placement Admission and Anticipated Discharge Date Admission Date: September 24, 2019 Subjective Patient is seen and examined at bedside States feeling tired and has weakness even with minimal exertion Still has dizziness Discussed with Endocrinology and patient's daughter in detail No pauses on monitor Denies any chest pain, shortness of breath, nausea, vomiting Review of Systems Review of Systems: All systems reviewed & are unremarkable except as noted in HPI & below Physical Exam Physical Exam: Physical Exam: Vitals signs as noted above General Appearance:Moderately built and nourished, no apparent distress Head: normocephalic, Atraumatic Eyes: normal inspection, EOMI Neck: supple, Trachea midline Respiratory/Chest: Normal breath sounds, CTA, No accessory muscle use Cardiovascular: S1, S2, No murmur, +Bradycardia Abdomen/GI:Soft, Non tender, Bowel sounds present Extremities/Musculoskelatal:normal inspection, Trace edema Neurologic/Psych:AAOX3, grossly no focal neurological deficits Skin: normal color, warm Results & Data Results & Data ([facility]) Vital Signs (Past 12 Hours) Vital Signs Temp Pulse Pulse Resp BP Pulse Ox 09/27/19 17:00 46 L 09/27/19 15:45 36.7 C 48 L 18 153/69 H 92 09/27/19 11:32 36.6 C 48 L 16 146/77 H 95 09/27/19 07:44 44 L 09/27/19 07:36 36.9 C 47 L 16 149/74 H 96 Laboratory Results Short CBC 09/27/19 Range/Units 05:18 WBC 7.48 (4.8-10.8) K/uL Hgb 14.4 (12.0-16.0) g/dL Hct 43.5 (37-47) % Plt Count 208 (130-400) K/uL BMP 09/27/19 05:18 Sodium 142 Potassium 3.4 L Chloride 106 Carbon Dioxide 28 BUN 8 Creatinine 0.81 Glucose 88 Calcium 8.5
[2019-09-27] MEDS: FAMOTIDINE 20 MG TAB PO SCH (22:03)
[2019-09-27] MEDS: HEPARIN SOD 5,000 UNIT/0.5 ML VIAL SQ SCH (22:04)
[2019-09-28] MEDS: cefTRIAXone SODIUM 1,000 MG in DEXTROSE 5% 50 ML IV SCH (05:16)
[2019-09-28 06:48] LABS: BUN Creatinine Ratio 7.2 (10-20); Calcium 8.6 mg/dl (8.5-10.1); Creatinine Clr Calc Pharmacy 39.9 ml/min; Est GFR (African American) 79.3; Est GFR (Non-African American) 68.5; Magnesium 2.1 mg/dl (1.8-2.4); Potassium 3.8 mmol/L (3.5-5.1)
[2019-09-28] MEDS: HEPARIN SOD 5,000 UNIT/0.5 ML VIAL SQ SCH ×2 (08:52→21:53)
[2019-09-28] MEDS: LEVOTHYROXINE SODIUM 50 MCG in SYRINGE 0 ML IV SCH (08:52)
[2019-09-28] MEDS: CYANOCOBALAMIN 500 MCG TABLET (VITAMIN B-12) PO SCH (08:53)
[2019-09-28] MEDS: POLYETHYLENE (MIRALAX) 17 GM PACK PO SCH (08:53)
[2019-09-28] MEDS: ASPIRIN 81 MG ECTAB PO SCH (08:53)
[2019-09-28] MEDS: CHOLECALCIFEROL 1,000 UNITS 25 MCG TAB PO SCH (08:53)
[2019-09-28] MEDS: ARTIFICIAL TEARS OP SCH (08:54)
[2019-09-28] MEDS: ONDANSETRON INJ 2 MG/ML 2 ML VIAL IV PRN ×2 (13:01→23:43)
[2019-09-28] MEDS: ACETAMINOPHEN 500 MG TAB PO PRN (13:01)
[2019-09-28] MEDS: CALCIUM CARBONATE 500 MG CHEWABLE TAB PO PRN (13:10)
[2019-09-28] MEDS: DOCUSATE SODIUM 100 MG CAP PO SCH ×2 (14:36→21:53)
--- NOTE | 2019-09-28 16:35 | Cardiology Consultation ---
Date of Consultation September 28, 2019 Assessment & Plan (1) Sinus bradycardia: Sinus bradycardia noted at rest. For heart rate currently in bed is in the mid 50s. Do not see any prolonged pauses. She did have relative bradycardia several days ago perhaps during sleep. At this point, I need to have her increase her activity as tolerated, and assess her heart rate response to physical activity. Be helpful to observe her heart rate on telemetry with attempts of physical therapy. Therefore continue telemetry observation pending increase in activity. History of Present Illness Attending Physician: Wilfred Guillen MD History of Present Illness Ivette Small is an 89 year old female seen in cardiology consultation per the request of Dr. Guillen for the evaluation of dizziness and bradycardia. The patient's daughter,Franck, was in the room and participated in our encounter. She presented to the emergency department on 09/24/2019 after a fall. Pressure, urinary tract infection. TSH level performed on 09/27/2019 was 30 microunits units per ml,. He is now on appropriate thyroid supplementation. Cardiology assessment patient regarding Procardia. Per review of telemetry, in the morning hours 0.6 and 7 AM on 09/26/19 ,bradycardia down to. Recent abdominal pain, previously heart rate approximately 55 bpm. When I arrived to see her today, she was resting comfortably in bed with a heart rate in the mid 50s. Her blood pressure is actually been on the higher side most recent reading was 121/65 however other recent readings today include 162/66 ,145/70. Apparently has issues with dizziness. Also generalized fatigue noted. Allergies Allergy/AdvReac Type Severity Reaction Status Date / Time Sulfa (Sulfonamide Allergy Severe Hives Verified 09/24/19 06:19 Antibiotics) ciprofloxacin [From Cipro] Allergy Intermediate Hallucinati Verified 09/24/19 06:19 ng Penicillins Allergy Intermediate hallucinate Verified 09/24/19 04:47 s/n/v Home Medications Home Medications Medication Instructions Recorded Confirmed Type Lidocaine Gel 1 applic TOPICAL DIRECTED 09/24/19 09/24/19 History acetaminophen [Tylenol Extra 500 mg PO Q6H PRN 09/24/19 09/24/19 History Strength] cholecalciferol (vitamin D3) 50 mcg PO DAILY 09/24/19 09/24/19 History cyanocobalamin (vitamin B-12) 500 mcg PO DAILY 09/24/19 09/24/19 History famotidine 20 mg PO HS 09/24/19 09/24/19 History levothyroxine 100 mcg PO DAILY 09/24/19 09/24/19 History peg 400-propylene glycol (PF) 1 drp OPHTHALMIC (EYE) DAILY 09/24/19 09/24/19 History [Systane (PF)] Patient History Social History Smoking Status: Never smoker Hx Alcohol Use: No Hx Substance Use: No Preferred Language: [place] Communication Ability: Effective Beliefs That Will Affect Care: None marital status: / Current Living Situation: Family Current Living Situation Comment: son lives with her Other Information That Helps Us Care for You: No Feels Safe at Home: Yes Review of Systems Review of Systems: All systems reviewed & are unremarkable except as noted in HPI & below Physical Exam Physical Exam: Temp Pulse Resp BP Pulse Ox 37.0 C 50 L 18 121/65 92 09/28/19 15:40 09/28/19 15:40 09/28/19 15:40 09/28/19 15:40 09/28/19 15:40 Constitutional: WD/WN, vitals as above Respiratory: normal respiratory effort, lungs clear to auscultation Cardiovascular: RRR, no murmur, no edema Gastrointestinal (Abdomen): normal bowel sounds, soft, nontender, no hepatosplenomegaly Neurologic: PERRL, EOMI, accommodation nl, no face palsy, no dysarthria Results & Data ([facility]) Vital Signs (Past 12 Hours) Vital Signs Temp Pulse Pulse Resp BP Pulse Ox 09/28/19 15:40 37.0 C 50 L 18 121/65 92 09/28/19 07:45 37.0 C 57 L 18 162/66 H 98 09/28/19 07:10 59 L Diagnostic Findings Echocardiogram 09/24/2019: Normal LVEF 6065%, mild aortic regurgitation, grade 1 diastolic dysfunction EKG performed 09/24/2023 1 AM revealed sinus bradycardia 59 bpm, nonspecific diffuse T wave flattening. Medications Administered Current Inpatient Medications Acetaminophen (Tylenol) 500 mg PO Q6H PRN PRN Reason: pain/fever Stop: 10/24/19 18:02 Last Admin: 09/28/19 13:01 Dose: 500 mg Documented by: Artificial Tears (Artificial Tears) 1 drops OP DAILY [facility]; Protocol Stop: 10/25/19 08:59 Last Admin: 09/28/19 08:54 Dose: 1 drops Documented by: Aspirin (Ecotrin Ectab) 81 mg PO QAM [facility] Stop: 10/24/19 10:59 Last Admin: 09/28/19 08:53 Dose: 81 mg Documented by: Calcium Carbonate (Tums) 1,000 mg PO Q6H PRN PRN Reason: Indigestion Stop: 10/24/19 11:33 Last Admin: 09/28/19 13:10 Dose: 1,000 mg Documented by: Cyanocobalamin (Vitamin B-12) 500 mcg PO DAILY [facility] Stop: 10/24/19 10:59 Last Admin: 09/28/19 08:53 Dose: 500 mcg Documented by: Docusate Sodium (Colace) 100 mg PO BID [facility] Stop: 10/28/19 12:59 Last Admin: 09/28/19 14:36 Dose: 100 mg Documented by: Famotidine (Pepcid) 20 mg PO HS [facility] Stop: 10/24/19 20:59 Last Admin: 09/27/19 22:03 Dose: 20 mg Documented by: Heparin Sodium (Porcine) (Heparin Sodium (Porcine)) 5,000 units SQ Q12 [facility] Stop: 10/27/19 20:59 Last Admin: 09/28/19 08:52 Dose: 5,000 units Documented by: Ceftriaxone Sodium 1,000 mg/ (Dextrose) 60 mls @ 100 mls/hr IV Q24H [facility]; Protocol Stop: 09/29/19 04:59 Last Infusion: 09/28/19 05:55 Dose: Infused Documented by: Levothyroxine Sodium 50 mcg/ (Syringe) 2.5 mls @ 2 mls/min IV DAILY@0900 [facility] Stop: 10/28/19 08:59 Last Admin: 09/28/19 08:52 Dose: 2 mls/min Documented by: Lidocaine HCl (Xylocaine 2% Jelly) 1 ml EXT DAILY PRN PRN Reason: as directed Stop: 10/24/19 18:29 Nitroglycerin (Nitrostat) 0.4 mg SL UD PRN PRN Reason: Chest Pain Stop: 10/24/19 10:33 Ondansetron HCl (Zofran) 4 mg IV Q6H PRN PRN Reason: Nausea Stop: 10/24/19 10:33 Last Admin: 09/28/19 13:01 Dose: 4 mg Documented by: Polyethylene Glycol (Miralax Powder Packet) 17 gm PO DAILY [facility] Stop: 10/25/19 14:59 Last Admin: 09/28/19 08:53 Dose: 17 gm Documented by: Tramadol HCl (Ultram) 25 mg PO Q4H PRN PRN Reason: Pain Stop: 10/26/19 01:16 Last Admin: 09/26/19 01:43 Dose: 25 mg Documented by: Vitamin D (Vitamin D3) 2,000 units PO DAILY [facility] Stop: 10/25/19 08:59 Last Admin: 09/28/19 08:53 Dose: 2,000 units Documented by:
--- NOTE | 2019-09-28 17:20 | Hospitalist Progress Note ---
Date of Service September 28, 2019 Assessment & Plan (1) Complicated UTI (urinary tract infection): Patient is an 89 yr female who ambulates with walker at baseline presents secondary to recurrent falls. UTI: Urine Cx: E.Coli--Pansensitive Continue Rocephin Day #4/5 Received IV fluids Continue current treatment Recurrent Falls Possible Concussion secondary to fall R/O CVA Positive Orthostatics --MRI Brain:No acute intracranial abnormality, specifically there is no evidence of acute or subacute infarct. Age-related involutional changes with ex vacuo ventriculomegaly. Extensive confluent T2/FLAIR hyperintensities throughout the white matter are suggestive of probable chronic microvascular ischemic disease. --Carotid Doppler:No hemodynamically significant stenosis. Normal antegrade vertebral flow bilaterally. --PT/OT --Continue aspirin --Appreciate Neurology Input Dizziness Hypotension MRI brain/Carotid doppler as above Not on any BP meds Received IV fluids Liberalize salt in diet Teds Fall precautions Sinus Bradycardia Likely due to hypothyroidism Avoid AV romeo blocking agents --ECHO: The interatrial septum is intact with no evidence of ASD. Left atrium is moderately dilated. Right atrial size is normal. Left ventricle is normal in size. Ejection fraction 60 to 65%. Right ventricular systolic function is normal. Mild aortic regurgitation. Grade 1 diastolic dysfunction. Monitor on Tele Discussed with Endocrinology Dr.Jodie Major ([facility]) Continue trial of IV levothyroxine Transition to PO levothyroxine 125 mcg as able Needs repeat thyroid function test as outpatient Appreciate Cardiology Input No pauses on Monitor Will check heart rate response to physical activity Hypothyroidism Thyroid levels fluctuate as per patient's daughter Currently Subclinical hypothyroidism TSH:30 Free T4:1.03 Plan to increase Levothyroxine to 125mcg as able Needs follow up with Endocrinology upon discharge Hypokalemia Replete electrolytes as needed Normal magnesium levels Gastroesophageal reflux disease On famotidine DVT Px: SCDs Heparin SQ Code Status Full Code DISPOSITION: Needs Rehab placement Admission and Anticipated Discharge Date Admission Date: September 24, 2019 Subjective Patient is seen and examined at bedside Feels lot better today Dizziness improved Heart rate better Discussed with Cardiology today Reports constipation Denies any chest pain, shortness of breath, nausea, vomiting Family at bedside Review of Systems Review of Systems: All systems reviewed & are unremarkable except as noted in HPI & below Physical Exam Physical Exam: Physical Exam: Vitals signs as noted above General Appearance:Moderately built and nourished, no apparent distress Head: normocephalic, Atraumatic Eyes: normal inspection, EOMI Neck: supple, Trachea midline Respiratory/Chest: Normal breath sounds, CTA, No accessory muscle use Cardiovascular: S1, S2, No murmur, +Bradycardia Abdomen/GI:Soft, Non tender, Bowel sounds present Extremities/Musculoskelatal:normal inspection, Trace edema Neurologic/Psych:AAOX3, grossly no focal neurological deficits Skin: normal color, warm Results & Data Results & Data ([facility]) Vital Signs (Past 12 Hours) Vital Signs Temp Pulse Pulse Resp BP Pulse Ox 09/28/19 16:37 55 L 09/28/19 15:40 37.0 C 50 L 18 121/65 92 09/28/19 07:45 37.0 C 57 L 18 162/66 H 98 09/28/19 07:10 59 L Laboratory Results [facility] 09/28/19 05:58 Sodium 142 Potassium 3.8 Chloride 105 Carbon Dioxide 33 H BUN 6 L Creatinine 0.77 Glucose 95 Calcium 8.6
[2019-09-28] MEDS: FAMOTIDINE 20 MG TAB PO SCH (21:53)
[2019-09-29 06:54] LABS: Calcium 9.2 mg/dl (8.5-10.1); Creatinine Clr Calc Pharmacy 37.5 ml/min; Est GFR (African American) 74.6; Est GFR (Non-African American) 64.4; Potassium 3.8 mmol/L (3.5-5.1)
[2019-09-29] MEDS: DOCUSATE SODIUM 100 MG CAP PO SCH (08:40)
[2019-09-29] MEDS: CYANOCOBALAMIN 500 MCG TABLET (VITAMIN B-12) PO SCH (08:41)
[2019-09-29] MEDS: POLYETHYLENE (MIRALAX) 17 GM PACK PO SCH (08:41)
[2019-09-29] MEDS: ASPIRIN 81 MG ECTAB PO SCH (08:41)
[2019-09-29] MEDS: CHOLECALCIFEROL 1,000 UNITS 25 MCG TAB PO SCH (08:41)
[2019-09-29] MEDS: HEPARIN SOD 5,000 UNIT/0.5 ML VIAL SQ SCH ×2 (08:41→20:33)
[2019-09-29] MEDS: ARTIFICIAL TEARS OP SCH (08:41)
[2019-09-29] MEDS: LEVOTHYROXINE SODIUM 50 MCG in SYRINGE 0 ML IV SCH (08:53)
[2019-09-29] MEDS ORDERED: ALUMINUM/MAGNESIUM/SIMETH (MAALOX MAX) 30 ML UDC PO PRN (11:01)
[2019-09-29] MEDS ORDERED: SENNA 8.6 MG TAB PO SCH (11:15)
--- NOTE | 2019-09-29 11:35 | Cardiology Progress Note ---
Date of Service September 29, 2019 Assessment & Plan (1) Sinus bradycardia: I do not think her heart rate in the 50s to 60s explains her symptoms. No indication for permanent pacemaker implantation at present. Continue PT. Avoid AV romeo blockers. Subjective Patient awake and oriented. Telemetry reveals SR in the 60s while awake in bed this am. Physical Exam Physical Exam: Temp Pulse Resp BP Pulse Ox 36.6 C 51 L 20 128/68 96 09/29/19 07:29 09/29/19 07:29 09/29/19 07:29 09/29/19 07:29 09/29/19 07:29 Constitutional: WD/WN, vitals as above Cardiovascular: RRR, no murmur, no edema Gastrointestinal (Abdomen): normal bowel sounds, soft, nontender, no hepatosplenomegaly Neurologic: PERRL, EOMI, accommodation nl, no face palsy, no dysarthria Results & Data Vital Signs (Past 12 Hours) Vital Signs Temp Pulse Pulse Resp BP BP Pulse Ox 09/29/19 07:29 36.6 C 57 L 51 L 20 128/68 96 09/29/19 03:00 37.1 C 56 L 18 173/91 H 99 09/28/19 23:57 58 L Laboratory Results Comprehensive Metabolic Panel 09/29/19 Range/Units 06:12 Sodium 139 (136-145) mmol/L Potassium 3.8 (3.5-5.1) mmol/L Chloride 102 (98-107) mmol/L Carbon Dioxide 32 (21-32) mmol/L BUN 6 L (7-18) mg/dl Creatinine 0.81 (0.6-1.2) mg/dl Glucose 91 (70-99) mg/dl Calcium 9.2 (8.5-10.1) mg/dl Intake and Output 09/28/19 09/29/19 09/29/19 22:59 06:59 14:59 Intake Total 140 / 650 270 / 650 Output Total 350 / 600 Balance 140 / 50 -80 / 50 Intake: Oral 140 / 650 270 / 650 Output: Urine 350 / 600 Other: # Unmeasured Voids 1 Weight 64.9 kg
[2019-09-29] MEDS ORDERED: bisacodyL 10 MG SUPP PR STA (13:23)
--- NOTE | 2019-09-29 13:51 | XRay Report ---
XR KUB/Abdomen 1 view CLINICAL HISTORY: constipation COMPARISON STUDY: No previous studies for comparison. FINDINGS: There is no pathologic bowel dilatation. There is scattered colonic stool. There are no meliza cifications suspicious for urinary tract calculi. IMPRESSION: 1. Nonobstructive bowel gas pattern 2. Scattered colonic stool ACT 112: Negative or not required by law. Electronically signed by: Oleksandr Keller M.D. 09/29/2019 1:50 PM
--- NOTE | 2019-09-29 15:24 | Hospitalist Progress Note ---
Date of Service September 29, 2019 Assessment & Plan (1) Complicated UTI (urinary tract infection): Patient is an 89 yr female who ambulates with walker at baseline presents secondary to recurrent falls. UTI: Urine Cx: E.Coli--Pansensitive Continue Rocephin Day # 5/5 Received IV fluids Completed antibiotic course Recurrent Falls Possible Concussion secondary to fall R/O CVA Positive Orthostatics --MRI Brain:No acute intracranial abnormality, specifically there is no evidence of acute or subacute infarct. Age-related involutional changes with ex vacuo ventriculomegaly. Extensive confluent T2/FLAIR hyperintensities throughout the white matter are suggestive of probable chronic microvascular ischemic disease. --Carotid Doppler:No hemodynamically significant stenosis. Normal antegrade vertebral flow bilaterally. --PT/OT --Continue aspirin --Appreciate Neurology Input Constipation KUB: Nonobstructive bowel gas pattern. Scattered colonic stool Continue bowel regimen Encourage to ambulate Dizziness--Improved Hypotension--Resolved MRI brain/Carotid doppler as above Not on any BP meds Received IV fluids Teds Fall precautions Sinus Bradycardia Likely due to hypothyroidism Avoid AV romeo blocking agents --ECHO: The interatrial septum is intact with no evidence of ASD. Left atrium is moderately dilated. Right atrial size is normal. Left ventricle is normal in size. Ejection fraction 60 to 65%. Right ventricular systolic function is normal. Mild aortic regurgitation. Grade 1 diastolic dysfunction. Monitor on Tele Discussed with Endocrinology Dr.Jodie Major ([facility]) Continue trial of IV levothyroxine Transition to PO levothyroxine 125 mcg as able Needs repeat thyroid function test as outpatient Appreciate Cardiology Input No pauses on Monitor Hypothyroidism Thyroid levels fluctuate as per patient's daughter Currently Subclinical hypothyroidism TSH:30 Free T4:1.03 Plan to increase Levothyroxine to 125mcg as able Needs follow up with Endocrinology upon discharge Hypokalemia Replete electrolytes as needed Normal magnesium levels Gastroesophageal reflux disease On famotidine DVT Px: SCDs Heparin SQ Code Status Full Code DISPOSITION: Plan to discharge to Rehab facility as able Admission and Anticipated Discharge Date Admission Date: September 24, 2019 Subjective Patient is seen and examined at bedside Reports constipation Denies nausea, vomiting, abd pain Dizziness is intermittent Discussed with Cardiology today Also denies any chest pain, SOB Review of Systems Review of Systems: All systems reviewed & are unremarkable except as noted in HPI & below Physical Exam Physical Exam: Physical Exam: Vitals signs as noted above General Appearance:Moderately built and nourished, no apparent distress Head: normocephalic, Atraumatic Eyes: normal inspection, EOMI Neck: supple, Trachea midline Respiratory/Chest: Normal breath sounds, CTA, No accessory muscle use Cardiovascular: S1, S2, No murmur, +Bradycardia Abdomen/GI:Soft, Non tender, Bowel sounds present Extremities/Musculoskelatal:normal inspection, Trace edema Neurologic/Psych:AAOX3, grossly no focal neurological deficits Skin: normal color, warm Results & Data Results & Data ([facility]) Vital Signs (Past 12 Hours) Vital Signs Temp Pulse Pulse Resp BP BP Pulse Ox 09/29/19 11:44 36.8 C 56 L 18 156/70 H 93 09/29/19 07:29 36.6 C 57 L 51 L 20 128/68 96 Laboratory Results [facility] 09/29/19 06:12 Sodium 139 Potassium 3.8 Chloride 102 Carbon Dioxide 32 BUN 6 L Creatinine 0.81 Glucose 91 Calcium 9.2
[2019-09-29] MEDS: ACETAMINOPHEN 500 MG TAB PO PRN (17:43)
[2019-09-29] MEDS: ONDANSETRON INJ 2 MG/ML 2 ML VIAL IV PRN (17:44)
[2019-09-29] MEDS: DOCUSATE SODIUM/SENNA 50/8.6MG TAB PO SCH (20:33)
[2019-09-29] MEDS: FAMOTIDINE 20 MG TAB PO SCH (20:33)
[2019-09-30] MEDS ORDERED: LEVOTHYROXINE SODIUM 125 MCG TABLET PO SCH (06:30)
[2019-09-30 07:18] VITALS: TEMP 98.1
[2019-09-30 07:19] LABS: Hemoglobin 14.9 g/dL (12.0-16.0); Mean Corpuscular Hemoglobin 30.5 pg (25-34); Mean Corpuscular Hgb Conc 33.9 g/dL (32-36); Mean Corpuscular Volume 90.2 fL (80-100); Mean Platelet Volume 11.1 fL (7.4-10.4); Platelet Count 208 K/uL (130-400); RDW Coefficient of Variation 14.3 % (11.5-14.5); RDW Standard Deviation 46.8 fL (36.4-46.3); Red Blood Count 4.88 M/uL (4.2-5.4); White Blood Count 7.77 K/uL (4.8-10.8)
[2019-09-30 07:55] LABS: BUN Creatinine Ratio 11.8 (10-20); Calcium 9.4 mg/dl (8.5-10.1); Creatinine Clr Calc Pharmacy 39.5 ml/min; Est GFR (African American) 78.1; Est GFR (Non-African American) 67.4; Potassium 3.8 mmol/L (3.5-5.1)
[2019-09-30] MEDS: ASPIRIN 81 MG ECTAB PO SCH (08:33)
[2019-09-30] MEDS: ARTIFICIAL TEARS OP SCH (08:33)
[2019-09-30] MEDS: HEPARIN SOD 5,000 UNIT/0.5 ML VIAL SQ SCH (08:33)
[2019-09-30] MEDS: CYANOCOBALAMIN 500 MCG TABLET (VITAMIN B-12) PO SCH (08:34)
[2019-09-30] MEDS: POLYETHYLENE (MIRALAX) 17 GM PACK PO SCH (08:34)
[2019-09-30] MEDS: CHOLECALCIFEROL 1,000 UNITS 25 MCG TAB PO SCH (08:34)
[2019-09-30] MEDS: DOCUSATE SODIUM/SENNA 50/8.6MG TAB PO SCH (08:35)
[2019-09-30] MEDS ORDERED: PANTOprazole 40 MG TAB PO SCH (09:00)
[2019-09-30 11:25] VITALS: PULSE 59; O2SAT 94
--- NOTE | 2019-09-30 11:55 | Hospitalist Progress Note ---
Date of Service September 30, 2019 Assessment & Plan (1) Complicated UTI (urinary tract infection): Patient is an 89 yr female who ambulates with walker at baseline presents secondary to recurrent falls. UTI: Urine Cx: E.Coli--Pansensitive Continue Rocephin Day # 5/5 Received IV fluids Completed antibiotic course Recurrent Falls Possible Concussion secondary to fall R/O CVA Positive Orthostatics --MRI Brain:No acute intracranial abnormality, specifically there is no evidence of acute or subacute infarct. Age-related involutional changes with ex vacuo ventriculomegaly. Extensive confluent T2/FLAIR hyperintensities throughout the white matter are suggestive of probable chronic microvascular ischemic disease. --Carotid Doppler:No hemodynamically significant stenosis. Normal antegrade vertebral flow bilaterally. --PT/OT --Continue aspirin --Appreciate Neurology Input --Plan to discharge to rehab facility today Constipation KUB: Nonobstructive bowel gas pattern. Scattered colonic stool Continue bowel regimen Encourage to ambulate Resolved Dizziness--Improved Hypotension--Resolved MRI brain/Carotid doppler as above Not on any BP meds Received IV fluids Teds Fall precautions Sinus Bradycardia Likely due to hypothyroidism Avoid AV romeo blocking agents --ECHO: The interatrial septum is intact with no evidence of ASD. Left atrium is moderately dilated. Right atrial size is normal. Left ventricle is normal in size. Ejection fraction 60 to 65%. Right ventricular systolic function is normal. Mild aortic regurgitation. Grade 1 diastolic dysfunction. Monitor on Tele Discussed with Endocrinology Dr.Jodie Major ([facility]) Continue trial of IV levothyroxine Transition to PO levothyroxine 125 mcg as able Needs repeat thyroid function test as outpatient Appreciate Cardiology Input No pauses on Monitor Hypothyroidism Thyroid levels fluctuate as per patient's daughter Currently Subclinical hypothyroidism TSH:30 Free T4:1.03 Plan to discharge on Levothyroxine to 125mcg Needs follow up with Endocrinology upon discharge Hypokalemia Replete electrolytes as needed Normal magnesium levels Gastroesophageal reflux disease DC famotidine Started on PPI DVT Px: SCDs Heparin SQ Code Status Full Code DISPOSITION: Plan to discharge to Rehab facility today Admission and Anticipated Discharge Date Admission Date: September 24, 2019 Subjective Patient is seen and examined at bedside Doing well today Had BMs Dizziness improved No issues on Tele monitor Denies chest pain, SOB, nausea, abd pain Offers no other complaints Review of Systems Review of Systems: All systems reviewed & are unremarkable except as noted in HPI & below Physical Exam Physical Exam: Physical Exam: Vitals signs as noted above General Appearance:Moderately built and nourished, no apparent distress Head: normocephalic, Atraumatic Eyes: normal inspection, EOMI Neck: supple, Trachea midline Respiratory/Chest: Normal breath sounds, CTA, No accessory muscle use Cardiovascular: S1, S2, No murmur, +Bradycardia Abdomen/GI:Soft, Non tender, Bowel sounds present Extremities/Musculoskelatal:normal inspection, Trace edema Neurologic/Psych:AAOX3, grossly no focal neurological deficits Skin: normal color, warm Results & Data Results & Data ([facility]) Vital Signs (Past 12 Hours) Vital Signs Temp Pulse Pulse Resp BP Pulse Ox 09/30/19 11:25 36.7 C 59 L 16 148/62 H 94 09/30/19 09:54 140/72 09/30/19 07:43 67 09/30/19 07:17 36.7 C 84 20 172/82 H 95 09/30/19 04:59 58 L 09/30/19 04:00 37.1 C 65 20 169/85 H 94 Laboratory Results Short CBC 09/30/19 Range/Units 06:54 WBC 7.77 (4.8-10.8) K/uL Hgb 14.9 (12.0-16.0) g/dL Hct 44.0 (37-47) % Plt Count 208 (130-400) K/uL BMP 09/30/19 06:54 Sodium 139 Potassium 3.8 Chloride 103 Carbon Dioxide 31 BUN 9 Creatinine 0.78 Glucose 89 Calcium 9.4
--- NOTE | 2019-09-30 12:03 | Discharge Summary ---
Date of Service September 30, 2019 Admission HPI Per Admitting Provider CHIEF COMPLAINT: Dizziness and nausea. HISTORY OF PRESENT ILLNESS: This is an 89-year-old female with a past medical history significant for hypothyroidism, history of hypertension, currently not taking any medications, history of CVA versus TIA many years ago, but as per daughter, recent MRI scan 1 year ago did not show any stroke in it. The patient lives with her son. She walks with help of walker. About a week ago, she fell and also last Monday while she was walking with walker, she fell backwards. She thinks she hit her head and today she was having severe headache behind the eyes and also nauseous. She thought she might had concussion and came to the ER. When she came in, her blood pressure was high in 200s and her labs showed UTI. She was started on Rocephin. Her imaging studies were unremarkable. There is question of some mild right facial droop, and her daughter was not sure really sure if it was present prior or not. The patient otherwise alert and awake.Daughter helped with H&P but the patient is able to answer the questions. Currently, still has some headache. Her vision is not great and she always has a runny nose and occasional cough. She has a history of difficulty swallowing and as per daughter, she had extensive workup for swallowing and it was determined because of the GERD .Patient has some difficulty swallowing pills. Can swallow capsules okay. No shortness of breath, no chest pain, feels chills, no fever. Currently, nausea is better. No abdominal pain, but she has burning sensation in her throat when she eats food. Somewhat constipated, uses stool softeners. No blood in the stools. She has some mild burning micturition. No swelling in the legs, no rash. Currently resting comfortable and hemodynamically stable. Admission Exam Per Admitting Provider PHYSICAL EXAMINATION: GENERAL: The patient is old and frail, not in acute distress. VITAL SIGNS: Temperature 36.4, pulse 57, respiratory rate 14, blood pressure 117/84, oxygen 94% on room air. HEENT: No pallor, no icterus. Pupils equal, round, reactive to light. Mild right facial droop. NECK: No JVD, no neck masses. CARDIOVASCULAR: S1, S2 heard, regular rate and rhythm, no murmur, no gallop. RESPIRATORY SYSTEM: Normal AP diameter. No accessory muscle use. No wheezing, no crackles. ABDOMEN: Soft, bowel sounds present, nontender. No distention. CENTRAL NERVOUS SYSTEM: Alert and awake and oriented. Possible mild facial droop. Speech is okay. Power 3/5 extremities. Able to lift her lower extremity and hold it. Sensation is intact. No pronator drift. Position sense intact. EXTREMITIES: No edema, no erythema. Principal Diagnosis Urinary tract infection Recurrent falls Orthostatic hypotension Constipation Sinus bradycardia Dizziness Discharge Data Allergies Allergy/AdvReac Type Severity Reaction Status Date / Time ciprofloxacin [From Cipro] Allergy Intermediate Hallucinati Verified 09/24/19 06:19 ng Penicillins Allergy Intermediate hallucinate Verified 09/24/19 04:47 s/n/v Sulfa (Sulfonamide Allergy Intermediate Hives Verified 09/29/19 17:06 Antibiotics) Consultations 09/24/19 05:18 ED Decision to Admit Stat 09/24/19 10:34 Consult Case Management - Discharge Planning Routine Consult Case Management - Discharge Planning Routine Consult Neurology Routine 09/28/19 10:26 Consult Cardiology Routine Procedures Performed --MRI Brain:No acute intracranial abnormality, specifically there is no evidence of acute or subacute infarct. Age-related involutional changes with ex vacuo ventriculomegaly. Extensive confluent T2/FLAIR hyperintensities throughout the white matter are suggestive of probable chronic microvascular ischemic disease. --Carotid Doppler:No hemodynamically significant stenosis. Normal antegrade vertebral flow bilaterally. --ECHO: The interatrial septum is intact with no evidence of ASD. Left atrium is moderately dilated. Right atrial size is normal. Left ventricle is normal in size. Ejection fraction 60 to 65%. Right ventricular systolic function is normal. Mild aortic regurgitation. Grade 1 diastolic dysfunction. Ordered Studies 09/24/19 04:02 CT cervical spine wo con Urgent CT head/brain wo con Urgent 09/24/19 10:34 MR brain wo con Routine 09/24/19 10:34 US carotid doppler BI Routine 09/25/19 13:33 CT abd pelvis wo con Routine Hospital Course (1) Complicated UTI (urinary tract infection): Patient is an 89 yr female who ambulates with walker at baseline presents secondary to recurrent falls. UTI: Urine Cx: E.Coli--Pansensitive Continue Rocephin Day # 5/5 Received IV fluids Completed antibiotic course Recurrent Falls Possible Concussion secondary to fall R/O CVA Positive Orthostatics --MRI Brain:No acute intracranial abnormality, specifically there is no evidence of acute or subacute infarct. Age-related involutional changes with ex vacuo ventriculomegaly. Extensive confluent T2/FLAIR hyperintensities throughout the white matter are suggestive of probable chronic microvascular ischemic disease. --Carotid Doppler:No hemodynamically significant stenosis. Normal antegrade vertebral flow bilaterally. --PT/OT --Continue aspirin --Appreciate Neurology Input --Plan to discharge to rehab facility today Constipation KUB: Nonobstructive bowel gas pattern. Scattered colonic stool Continue bowel regimen Encourage to ambulate Resolved Dizziness--Improved Hypotension--Resolved MRI brain/Carotid doppler as above Not on any BP meds Received IV fluids Teds Fall precautions Sinus Bradycardia Likely due to hypothyroidism Avoid AV romeo blocking agents --ECHO: The interatrial septum is intact with no evidence of ASD. Left atrium is moderately dilated. Right atrial size is normal. Left ventricle is normal in size. Ejection fraction 60 to 65%. Right ventricular systolic function is normal. Mild aortic regurgitation. Grade 1 diastolic dysfunction. Monitor on Tele Discussed with Endocrinology Dr.Jodie Major ([facility]) Continue trial of IV levothyroxine Transition to PO levothyroxine 125 mcg as able Needs repeat thyroid function test as outpatient Appreciate Cardiology Input No pauses on Monitor Hypothyroidism Thyroid levels fluctuate as per patient's daughter Currently Subclinical hypothyroidism TSH:30 Free T4:1.03 Plan to discharge on Levothyroxine to 125mcg Needs follow up with Endocrinology upon discharge Hypokalemia Replete electrolytes as needed Normal magnesium levels Gastroesophageal reflux disease DC famotidine Started on PPI DVT Px: SCDs Heparin SQ Code Status Full Code DISPOSITION: Plan to discharge to Rehab facility today Total Time Total Time Spent Total Time Spent (In Minutes): 45 minutes Total Time Includes: Examination of the Patient, Discharge Planning, Medication Reconciliation, Communication With Other Providers and Other Discharge Plan Discharge Items Patient Disposition: Transfer Inpatient Rehab Fac Reason For Visit: DIZZINESS,NAUSEA/FALLS Discharge Diagnosis: Urinary tract infection Recurrent falls Orthostatic hypotension Constipation Sinus bradycardia Dizziness Activity: Resume your previous activity Exercise/Sports: Gradually increase as tolerated Non-emergency contact: Primary Care Provider and Specialist Call non-emergency contact if: you have any medication questions, your symptoms worsen, your pain is not controlled, your pain is worsening, your pain is unusual for you, your pain is concerning for you and you have a fever Follow-up/Referrals: Grace Perez, [Primary Care Provider] - Diet: Heart Healthy Addtl Attending Provider Instructions: Follow-up with your primary care physician Dr. Perez in 1 week upon discharge from rehab facility Follow-up with your mobile application engineer in 4 weeks as advised Get Thyroid function test in 2-3 weeks and follow up with your mobile application engineer Seek immediate medical attention if your symptoms reoccur or worsen Pending Studies at Discharge: No Stand-Alone Forms: My [facility] Skilled Items Patient informed of condition?: Yes DNR: No Discharge Level of Care: Acute rehab Communicable Disease: No Discharge Prognosis: Stable Lines: None Urinary Catheter: No Medications and DC Order Prescriptions: New aspirin 81 mg Tablet,Delayed Release (Dr/Ec) 81 mg PO QAM Qty: 30 RF: 0 pantoprazole 40 mg Tablet,Delayed Release (Dr/Ec) 40 mg PO QAM Qty: 30 RF: 0 polyethylene glycol 3350 [Miralax] 17 gram Powder In Packet 17 g PO DAILY PRN (Reason: Constipation) Qty: 30 RF: 0 levothyroxine [Synthroid] 125 mcg Tablet 125 mcg PO DAILYBB Qty: 30 RF: 0 Continued acetaminophen [Tylenol Extra Strength] 500 mg Tablet 500 mg PO Q6H PRN (Reason: pain/fever) RF: 0 cyanocobalamin (vitamin B-12) 500 mcg Tablet 500 mcg PO DAILY RF: 0 Systane (PF) 0.4-0.3 % Dropperette 1 drp OPHTHALMIC (EYE) DAILY RF: 0 Lidocaine Gel 1 applic topical DIRECTED RF: 0 cholecalciferol (vitamin D3) 25 mcg (1,000 unit) Tablet 50 mcg PO DAILY RF: 0 Discontinued famotidine 40 mg/5 mL (8 mg/mL) Suspension 20 mg PO HS RF: 0 levothyroxine 100 mcg Tablet 100 mcg PO DAILY RF: 0 Discharge Orders: Discharge Order (Routine); Ordered 09/30/19 Ordered By: Wilfred Guillen Admission Data Admit Date/Time: 09/24/19 06:14 Attending Provider: Wilfred Guillen Admit Provider: Bill Sheehan Primary Care Provider: Grace Perez Other Providers: Bill Sheehan ; Ashley Andino ; Gordon Cespedes ; Ashley Wakefield ; Stewart Epps. ; [facility] ; Giovani Velasco Other Interventions: Discharge Summary Assessment (RN) Last Done: 09/30/19 12:25 DC Date/Time DO NOT enter until pt leaves facility: 09/30/19 13:11
[2019-09-30 12:26] VITALS: BP 156/73
== END 2019-09-30 13:11 | DRG 690 ==
LOC: ED 03:52 → SUATTDRO 06:14 → 2N 06:14